=== PATIENT | male | born 1990 | race Caucasian/White ===

== ENCOUNTER 2017-07-30 02:04 | Emergency (ER) | payer OTHER ==
--- NOTE | 2017-07-30 03:05 | CPEKG ---
Heart Rate: 89 RR Interval: 674 P-R Interval: 132 QRSD Interval: 98 QT Interval: 368 QTC Interval: 448 P [place]: 66 QRS [place]: 91 T Wave [place]: 14 EKG Severity - OTHERWISE NORMAL ECG - EKG Impression: SINUS RHYTHM EKG Impression: BORDERLINE RIGHT AXIS DEVIATION Electronically Signed By: Lynsey Birch 30-Jul-2017 06:04:14
--- NOTE | 2017-07-30 03:16 | EDPHY ---
H & P Stated Complaint: BURNING IN CHEST AND FLUSH FEELING AFTER MED CHANGE Time Seen by Provider: 07/30/17 02:40 HPI/ROS: HPI The patient presents with concern for anxiety attack. He has had several hours of progressive panic, diffuse flushing, nausea. He has taken a total of 3 doses of lorazepam since his symptoms begun and now he is feeling much better. He has a history of bipolar disorder a had and has had changes to his medications lately, most recently started on Abilify 2 weeks ago. He denies any SI. REVIEW OF SYSTEMS Constitutional: No fever, no chills. Eyes: No discharge. ENT: No sore throat. Cardiovascular: No chest pain, no palpitations. Respiratory: No cough, no shortness of breath. Gastrointestinal: No abdominal pain, no vomiting. Genitourinary: No hematuria. Musculoskeletal: No back pain. Skin: No rashes. Neurological: No headache. PMHx: Bipolar disorder Soc Hx: Housed PHYSICAL General Appearance: Alert, no distress Eyes: Pupils equal and round no pallor or injection ENT, Mouth: Mucous membranes moist Respiratory: There are no retractions, lungs are clear to auscultation Cardiovascular: Regular rate and rhythm Gastrointestinal: Abdomen is soft and non-tender, no masses, bowel sounds normal Neurological: A&O, moves all extremities Skin: Warm and dry, no rashes Musculoskeletal: Neck is supple non tender Extremities: symmetrical, full range of motion Psychiatric: Patient is oriented X 3, there is no agitation Source: Patient Exam Limitations: No limitations - Personal History Current Tetanus/Diphtheria Vaccine: Yes Current Tetanus Diphtheria and Acellular Pertussis (TDAP): Yes - Medical/Surgical History Hx Asthma: Yes Hx Chronic Respiratory Disease: No Hx Diabetes: No Hx Cardiac Disease: No Hx Renal Disease: No Hx Cirrhosis: No Hx Alcoholism: No Hx HIV/AIDS: No Hx Splenectomy or Spleen Trauma: No Other PMH: asthma, bipolar?,depression, OCD - Social History Smoking Status: Former smoker Constitutional: Initial Vital Signs Temperature (C) 36.6 C 07/30/17 02:07 Heart Rate 109 H 07/30/17 02:07 Respiratory Rate 20 07/30/17 02:07 Blood Pressure 155/76 H 07/30/17 02:07 O2 Sat (%) 95 07/30/17 02:07 O2 Delivery Mode Room Air Allergies/Adverse Reactions: cefixime [From Suprax] Allergy (Verified 07/30/17 02:09) cefuroxime axetil [From Ceftin] Allergy (Verified 07/30/17 02:09) clarithromycin [From Biaxin] Allergy (Verified 07/30/17 02:09) erythromycin base [Erythromycin Base] Allergy (Verified 07/30/17 02:09) montelukast sodium [From Singulair] Allergy (Verified 07/30/17 02:09) Penicillins Allergy (Verified 07/30/17 02:09) Home Medications: Medication Instructions Recorded Advair 250/50 (RX) 12/28/13 Proventil Inhaler HFA (RX) 12/28/13 Ibuprofen [Motrin] 800 mg PO Q8 #20 tab 09/07/14 LORazepam [Ativan] 1 mg PO 09/07/14 lamoTRIgine [LamICTAL] 100 mg PO 09/07/14 ARIPiprazole [Abilify] 20 mg PO 07/30/17 Quetiapine Fumarate 50 mg PO 07/30/17 Sertraline HCl [Zoloft 25mg (*)] 10 mg PO DAILY 07/30/17 Medical Decision Making Differential Diagnosis: This is a 27-year-old male with history of bipolar disorder who presents from home with likely panic attack. He is now feeling much better after taking lorazepam. He had symptoms of flushing, feeling hot, nausea, panic. He is new to taking Abilify over the last few weeks. On exam, he is well-appearing with normal vital signs. EKG is checked to evaluate for QT prolongation. This is unremarkable. He feels well enough to go home and would like to be discharged. Differential diagnoses considered include anxiety attack, QT prolongation, SVT. Departure - Departure Disposition: Home, Routine, Self-Care Clinical Impression: Anxiety attack Condition: Good Instructions: Anxiety (ED) Additional Instructions: Please follow-up with your primary psychiatrist in the next few days. You should return to the emergency department if your worse in any way.
[2017-07-30 03:22] VITALS: BP 109/73
== END 2017-07-30 03:38 | disposition home or self-care (01) ==
DX: F41.9 Anxiety disorder, unspecified (principal); J45.909 Unspecified asthma, uncomplicated; Z87.891 Personal history of nicotine dependence

== ENCOUNTER → 2017-08-02 | Outpatient (CLI) | payer OTHER | LOC: BMCIMAGING 13:02 | PROVIDERS: ATTEND Family Medicine | DX: K59.00 Constipation, unspecified (principal); R16.1 Splenomegaly, not elsewhere classified ==

== ENCOUNTER 2017-08-06 01:56 | Emergency (ER) | payer OTHER ==
--- NOTE | 2017-08-06 02:31 | EDPHY ---
H & P Stated Complaint: c/o pain under R ribs, recent hx of constipation - says last bm 8+ days ago Time Seen by Provider: 08/06/17 02:31 HPI/ROS: HPI CHIEF COMPLAINT: Right flank pain sharp stabbing sudden onset. HISTORY OF PRESENT ILLNESS: This patient 27-year-old male, history of bipolar disorder, otherwise healthy, presents emergency room with right-sided close back pain CVA pain. Describes sharp stabbing pain. Radiates down to his abdomen right lower abdomen. He had nausea vomiting approximately a week ago this is since subsided. However he continues to have some back pain. However tonight it got worse. Describes sharp stabbing 10/10 rather constant woke from sleep. On the right side. He distally reports to me that we had some low back pain and abdominal discomfort earlier in the week he went to urgent care and thought he was constipated he was given an enema however states he still has not had a good bowel movement in 8 days. Denies fever. Denies chest pain or shortness of breath. Pain is located in the right flank radiates to the right abdomen. No fever. 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 Smokes tobacco. Family History: Noncontributory ROS REVIEW OF SYSTEMS: A comprehensive 10 point review of systems is otherwise negative aside from elements mentioned in the history of present illness. Exam Constitutional appears well nontoxic no acute distress triage nursing summary reviewed, vital signs reviewed, awake/alert. Eyes normal conjunctivae and sclera, EOMI, PERRLA. HENT normal inspection, atraumatic, moist mucus membranes, no epistaxis, neck supple/ no meningismus, no raccoon eyes. Respiratory clear to auscultation bilaterally, normal breath sounds, no respiratory distress, no wheezing. Cardiovascular rate normal, regular rhythm, no murmur, no edema, distal pulses normal. Gastrointestinal soft, non-tender, no rebound, no guarding, normal bowel sounds, no distension, no pulsatile mass. Genitourinary mild tender palpation right CVA, right-sided the abdomen, no guarding or peritoneal signs. Musculoskeletal no midline vertebral tenderness, full range of motion, no calf swelling, no tenderness of extremities, no meningismus, good pulses, neurovascularly intact. Skin pink, warm, & dry, no rash, skin atraumatic. Neurologic awake, alert and oriented x 3, AAOx3, moves all 4 extremities equally, motor intact, sensory intact, CN II-XII intact, normal cerebellar, normal vision, normal speech. Psychiatric normal mood/affect. Heme/Lymph/Immune no lymphadenopathy. Differential diagnosis includes but is not limited to and in no particular order : Bowel obstruction, appendicitis, gallbladder disease, diverticulitis, colitis , enteritis, perforated viscus, gastritis, GERD, esophagitis, urinary tract infection, pyelonephritis, kidney stones Medical Decision Making: Plan for this patient IV establishment with blood draw , CT scan abdomen pelvis without contrast for right flank pain, check blood work , urinalysis, IV pain medicine IV fluids and re-evaluate. Check UA. Re-evaluation: CT scan abdomen pelvis without contrast for flank pain: Negative for acute inflammatory process specifically no evidence of kidney stone, pyelonephritis, hydroureter or hydronephrosis. Right-sided constipation seen on the CT scan. Slight disc herniation L5-S1. No evidence of acute appendicitis. 0600: Blood work reviewed. Unremarkable. No evidence of high white count urinalysis is clean. Electrolytes are appropriate. CT scan shows constipation. This may be the cause of his right-sided pain. There is no evidence of kidney stone pyelonephritis or other acute inflammatory process seen on his CT scan. Patient is feeling much better after 1 mg IV Dilaudid IV fluids. He would like to go home. I discussed return precautions with him. He understands return emergency room if develops worsening abdominal pain fever vomiting. I will prescribe him stool softeners, as well as ibuprofen 800 mg. Return precautions discussed the understands. Source: Patient - Medical/Surgical History Hx Asthma: Yes Hx Chronic Respiratory Disease: No Hx Diabetes: No Hx Cardiac Disease: No Hx Renal Disease: No Hx Cirrhosis: No Hx Alcoholism: No Hx HIV/AIDS: No Hx Splenectomy or Spleen Trauma: No Other PMH: asthma, bipolar?,depression, OCD - Social History Smoking Status: Former smoker Constitutional: Initial Vital Signs Temperature (C) 36.9 C 08/06/17 02:09 Heart Rate 90 08/06/17 02:09 Respiratory Rate 18 08/06/17 02:09 Blood Pressure 109/66 08/06/17 02:09 O2 Sat (%) 97 08/06/17 02:09 O2 Delivery Mode Room Air Allergies/Adverse Reactions: cefixime [From Suprax] Allergy (Verified 08/06/17 02:14) cefuroxime axetil [From Ceftin] Allergy (Verified 08/06/17 02:14) clarithromycin [From Biaxin] Allergy (Verified 08/06/17 02:14) erythromycin base [Erythromycin Base] Allergy (Verified 08/06/17 02:14) montelukast sodium [From Singulair] Allergy (Verified 08/06/17 02:14) peanut Allergy (Verified 08/06/17 02:14) Penicillins Allergy (Verified 08/06/17 02:14) tree nut Allergy (Verified 08/06/17 02:14) Home Medications: Medication Instructions Recorded Advair 250/50 (RX) 12/28/13 Proventil Inhaler HFA (RX) 12/28/13 Ibuprofen [Motrin] 800 mg PO Q8 #20 tab 09/07/14 LORazepam [Ativan] 1 mg PO 09/07/14 lamoTRIgine [LamICTAL] 100 mg PO 09/07/14 ARIPiprazole [Abilify] 20 mg PO 07/30/17 Quetiapine Fumarate 50 mg PO 07/30/17 Sertraline HCl [Zoloft 25mg (*)] 10 mg PO DAILY 07/30/17 Ibuprofen [Motrin (*)] 800 mg PO Q6-8PRN #14 tab 08/06/17 OLANZapine 08/06/17 Polyethylene Glycol 3350 [Miralax 17 gm PO DAILY #4 pkt 08/06/17 17 gm (*)] Medical Decision Making - Data Points Laboratory Results: Laboratory Results 08/06/17 03:00 08/06/17 03:00 08/06/17 08/06/17 08/06/17 04:40 03:00 03:00 WBC 7.77 10^3/uL 10^3/uL (3.80-9.50) RBC 4.46 10^6/uL 10^6/uL (4.40-6.38) Hgb 13.9 g/dL g/dL (13.7-17.5) Hct 39.4 % L % (40.0-51.0) MCV 88.3 fL fL (81.5-99.8) MCH 31.2 pg pg (27.9-34.1) MCHC 35.3 g/dL g/dL (32.4-36.7) RDW 12.2 % % (11.5-15.2) Plt Count 232 10^3/uL 10^3/uL (150-400) MPV 9.8 fL fL (8.7-11.7) Neut % (Auto) 50.9 % % (39.3-74.2) Lymph % (Auto) 33.3 % % (15.0-45.0) [place] % (Auto) 7.2 % % (4.5-13.0) Eos % (Auto) 7.5 % % (0.6-7.6) Baso % (Auto) 0.8 % % (0.3-1.7) Nucleat RBC Rel Count 0.0 % % (0.0-0.2) Absolute Neuts (auto) 3.96 10^3/uL 10^3/uL (1.70-6.50) Absolute Lymphs (auto) 2.59 10^3/uL 10^3/uL (1.00-3.00) Absolute Monos (auto) 0.56 10^3/uL 10^3/uL (0.30-0.80) Absolute Eos (auto) 0.58 10^3/uL H 10^3/uL (0.03-0.40) Absolute Basos (auto) 0.06 10^3/uL 10^3/uL (0.02-0.10) Absolute Nucleated RBC 0.00 10^3/uL 10^3/uL (0-0.01) Immature Gran % 0.3 % % (0.0-1.1) Immature Gran # 0.02 10^3/uL 10^3/uL (0.00-0.10) Sodium 145 mEq/L mEq/L (135-145) Potassium 4.1 mEq/L mEq/L (3.5-5.2) Chloride 104 mEq/L mEq/L (97-110) Carbon Dioxide 28 mEq/l mEq/l (22-31) Anion Gap 13 mEq/L mEq/L (8-16) BUN 15 mg/dL mg/dL (7-23) Creatinine 1.0 mg/dL mg/dL (0.7-1.3) Estimated GFR > 60 Glucose 96 mg/dL mg/dL (70-100) Calcium 9.9 mg/dL mg/dL (8.5-10.4) Total Bilirubin 0.3 mg/dL mg/dL (0.1-1.4) Conjugated Bilirubin 0.2 mg/dL mg/dL (0.0-0.5) Unconjugated Bilirubin 0.1 mg/dL mg/dL (0.0-1.1) AST 15 IU/L L IU/L (17-59) ALT 22 IU/L IU/L (21-72) Alkaline Phosphatase 73 IU/L IU/L (38-126) Total Protein 7.4 g/dL g/dL (6.3-8.2) Albumin 4.7 g/dL g/dL (3.5-5.0) Lipase 115 IU/L IU/L (23-300) Urine Color YELLOW Urine Appearance MODERATELY TURBID Urine pH 8.0 H (5.0-7.5) Ur Specific [place] 1.014 (1.002-1.030) Urine Protein NEGATIVE (NEGATIVE) Urine Ketones NEGATIVE (NEGATIVE) Urine Blood NEGATIVE (NEGATIVE) Urine Nitrate NEGATIVE (NEGATIVE) Urine Bilirubin NEGATIVE (NEGATIVE) Urine Urobilinogen NEGATIVE EU EU (0.2-1.0) Ur Leukocyte Esterase NEGATIVE (NEGATIVE) Urine Glucose NEGATIVE (NEGATIVE) Medications Given: Discontinued Medications Hydromorphone HCl (Dilaudid) 1 mg IVP EDNOW ONE Stop: 08/06/17 02:43 Last Admin: 08/06/17 03:05 Dose: 1 mg Sodium Chloride (Ns) 1,000 mls @ 0 mls/hr IV EDNOW ONE; Wide Open PRN Reason: Protocol Stop: 08/06/17 02:43 Last Admin: 08/06/17 03:06 Dose: 1,000 mls Ondansetron HCl (Zofran) 4 mg IVP EDNOW ONE Stop: 08/06/17 02:43 Last Admin: 08/06/17 03:05 Dose: 4 mg Departure - Departure Disposition: Home, Routine, Self-Care Clinical Impression: Constipation Qualifiers: Constipation type: slow transit constipation Qualified Code(s): K59.01 - Slow transit constipation Condition: Good Instructions: Constipation (ED), Flank Pain (ED) Additional Instructions: 1. Return emergency room if you have worsening abdominal pain fever vomiting good. Referrals: NONE *PRIMARY CARE P,. [Primary Care Provider] - As per Instructions Prescriptions: Ibuprofen [Motrin (*)] 800 mg PO Q6-8PRN #14 tab Polyethylene Glycol 3350 [Miralax 17 gm (*)] 17 gm PO DAILY #4 pkt
[2017-08-06] MEDS ORDERED: NS 1,000 ML IV ONE (02:42)
[2017-08-06] MEDS ORDERED: HYDROmorphONE/DILAUDID 2 MG/ML INJ IVP ONE (02:42)
[2017-08-06] MEDS ORDERED: ONDANSETRON 4 MG/2 ML VIAL IVP ONE (02:42)
[2017-08-06 03:32] LABS: PLATELET COUNT 232 10^3/uL (150-400)
[2017-08-06 06:19] VITALS: BP 100/57
== END 2017-08-06 06:20 | disposition home or self-care (01) ==
DX: K59.01 Slow transit constipation (principal); E86.9 Volume depletion, unspecified; J45.909 Unspecified asthma, uncomplicated; Z87.891 Personal history of nicotine dependence; Z91.010 Allergy to peanuts
CPT/HCPCS: 96374; J1170; J2405

== ENCOUNTER → 2017-11-07 | Outpatient (CLI) | payer OTHER | LOC: BMCIMAGING 16:41 | PROVIDERS: ATTEND Internal Medicine | DX: M54.2 Cervicalgia (principal) ==

== ENCOUNTER 2018-05-09 14:16 | Emergency (ER) | payer OTHER ==
[2018-05-09 14:23] VITALS: BP 122/94
--- NOTE | 2018-05-09 14:34 | EDPHY ---
H & P Stated Complaint: snapping fingers felt sharp nerve type pain r arm Time Seen by Provider: 05/09/18 14:19 HPI/ROS: HPI: This is a 28-year-old male who presents with Chief Complaint: snapping fingers felt sharp nerve type pain r arm Location: Right wrist Quality: Injury Duration: 30 min prior to arrival Signs and Symptoms: No bleeding, + radiation, no numbness, no weakness, no tingling, no incontinence, no decreased range of motion, no swelling, + pain, no fever Timing: Acute Severity: Moderate Context: Patient reports that he is right-hand dominant, presents with sudden onset of right volar aspect wrist pain that shoots up into his elbow after stepping his fingers and twisting his wrist. Patient reports that the pain was sudden and sharp and shooting in nature. He denies any decreased range of motion. 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 Modifying Factors: None Comment: ROS: A comprehensive 10 system review of systems is otherwise negative aside from elements mentioned in the history of present illness. MEDICAL/SURGICAL/SOCIAL HISTORY: Medical history: asthma, bipolar?, depression, OCD Surgical history: Denies Social history: Former smoker. 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 CONSTITUTIONAL: Well-developed, well-nourished adult white male, awake and alert, mild distress HEENT: Atraumatic and normocephalic. NECK: supple, no midline tenderness Cardiovascular: Normal S1/S2, regular rate, regular rhythm, without murmur rub or gallop. PULMONARY/CHEST: Symmetrical and nontender. no crepitus. Clear to auscultation bilaterally. Good air movement. No accessory muscle usage. ABDOMEN: Soft, nondistended, nontender, no ecchymosis. EXTREMITIES: 2/2 pulses, strength 5/5, right WRIST: Extension limited to 40 degree, flexion limited to 40, radial deviation to 20 degree, ulnar deviation to 30, no scaphoid tenderness, no tenderness over ulnar styloid, no tenderness over radial styloid, no pain with Marko test, mild pain with Phalen test, moderate pain with Tinel test DIP/PIP/MCP flexion/extension intact with good light touch sensation. Right ELBOW: Full extension to 180, flexion to 150, no tenderness over medial epicondyle, no tenderness over lateral epicondyle, no effusion. no deformities, no clubbing, no cyanosis or edema. NEUROLOGICAL: no focal neuro deficits. GCS 15. Light touch sensation intact. SKIN: Warm and dry, no erythema. no rash. Good capillary refill. Source: Patient Exam Limitations: No limitations - Personal History Current Tetanus Diphtheria and Acellular Pertussis (TDAP): Unsure - Medical/Surgical History Hx Asthma: Yes Hx Chronic Respiratory Disease: No Hx Diabetes: No Hx Cardiac Disease: No Hx Renal Disease: No Hx Cirrhosis: No Hx Alcoholism: No Hx HIV/AIDS: No Hx Splenectomy or Spleen Trauma: No Other PMH: asthma, bipolar?,depression, OCD - Social History Smoking Status: Former smoker Constitutional: Initial Vital Signs Temperature (C) 36.5 C 05/09/18 14:21 Heart Rate 100 05/09/18 14:21 Respiratory Rate 18 05/09/18 14:21 Blood Pressure 122/94 H 05/09/18 14:21 O2 Sat (%) 96 05/09/18 14:21 O2 Delivery Mode Room Air Allergies/Adverse Reactions: cefixime [From Suprax] Allergy (Verified 05/09/18 14:18) cefuroxime axetil [From Ceftin] Allergy (Verified 05/09/18 14:18) clarithromycin [From Biaxin] Allergy (Verified 05/09/18 14:18) erythromycin base [Erythromycin Base] Allergy (Verified 05/09/18 14:18) montelukast sodium [From Singulair] Allergy (Verified 05/09/18 14:18) peanut Allergy (Verified 05/09/18 14:18) Penicillins Allergy (Verified 05/09/18 14:18) tree nut Allergy (Verified 05/09/18 14:18) Home Medications: Medication Instructions Recorded Advair 250/50 (RX) 12/28/13 Proventil Inhaler HFA (RX) 12/28/13 Ibuprofen [Motrin] 800 mg PO Q8 #20 tab 09/07/14 LORazepam [Ativan] 1 mg PO 09/07/14 lamoTRIgine [LamICTAL] 100 mg PO 09/07/14 ARIPiprazole [Abilify] 20 mg PO 07/30/17 Quetiapine Fumarate 50 mg PO 07/30/17 Ibuprofen [Motrin (*)] 800 mg PO Q6-8PRN #14 tab 08/06/17 OLANZapine 08/06/17 Polyethylene Glycol 3350 [Miralax 17 gm PO DAILY #4 pkt 08/06/17 17 gm (*)] Propranolol HCl 05/09/18 Trileptal 05/09/18 Medical Decision Making Procedures: Procedure: Splint placement. A right Velcro volar wrist splint was applied by the Emergency Room health technician. After application of the splint I returned and re-examined the patient. The splint was adequately immobilizing the joint and distal to the splint the patient's circulation and sensation was intact. ED Course/Re-evaluation: No indication for x-ray imaging as I do not believe that this is bone related. It appears that patient has a sprain or nerve impingement injury. Patient placed in a Velcro volar wrist splint, Percocet x1, orthopedic hand follow-up as needed No signs of neurovascular compromise/tenting of skin/compartment syndrome/ extremities and joints examined above and below area of concern and are neurovascularly intact. This patient was seen under the supervision of my secondary supervising physician. I evaluated care for this patient independently. Discussed this patient with Dr. Croft who did not see the patient. Differential Diagnosis: Differential diagnosis includes but is not limited to ligamentous injury, nerve injury, tendon injury, sprain. Departure - Departure Disposition: Home, Routine, Self-Care Clinical Impression: Injury of median nerve at wrist and hand level of right arm, initial encounter Right wrist injury Qualifiers: Encounter type: initial encounter Qualified Code(s): S69.91XA - Unspecified injury of right wrist, hand and finger(s), initial encounter Condition: Good Instructions: Paresthesia (ED), Carpal Tunnel Surgery (DC) Additional Instructions: Wear the Velcro wrist splint while out of bed until pain free or seen by orthopedic/hand. Take Tylenol 650 mg every 4 hours and/or Ibuprofen 600 mg every 8 hours with food as needed for pain. Apply ice for 30 minutes at a time; 2-3 times per day for the next 1-2 days. Follow up with Orthopedics/Hand in 5-7 days if symptoms persist at which time they will evaluate and recommend with you if conservative management versus MRI is indicated. Referrals: Nate Irby MD [Medical Doctor] - As per Instructions
[2018-05-09] MEDS ORDERED: OXYCODONE/APAP 5/325 TAB PO ONE (14:42)
== END 2018-05-09 14:57 | disposition home or self-care (01) ==
DX: S64.11XA Injury of median nerve at wrist and hand level of right arm, initial encounter (principal); J45.909 Unspecified asthma, uncomplicated; F32.9 Major depressive disorder, single episode, unspecified; F42.9 Obsessive-compulsive disorder, unspecified; Z79.899 Other long term (current) drug therapy; Z87.891 Personal history of nicotine dependence; X58.XXXA Exposure to other specified factors, initial encounter
CPT/HCPCS: L3984

== ENCOUNTER 2018-07-04 18:26 | Emergency (ER) | payer OTHER ==
[2018-07-04] MEDS ORDERED: NS 1,000 ML IV ONE (18:40)
[2018-07-04] MEDS ORDERED: HYDROmorphONE/DILAUDID 2 MG/ML INJ IVP ONE (18:40)
[2018-07-04] MEDS ORDERED: ONDANSETRON 4 MG/2 ML VIAL IVP ONE (18:40)
--- NOTE | 2018-07-04 18:44 | EDPHY ---
H & P Stated Complaint: L teste/penis/low back pn with burning urination x5D Time Seen by Provider: 07/04/18 18:34 - Personal History Current Tetanus/Diphtheria Vaccine: Yes - Medical/Surgical History Hx Asthma: Yes Hx Chronic Respiratory Disease: No Hx Diabetes: No Hx Cardiac Disease: No Hx Renal Disease: No Hx Cirrhosis: No Hx Alcoholism: No Hx HIV/AIDS: No Hx Splenectomy or Spleen Trauma: No Other PMH: asthma, bipolar?,depression, OCD - Social History Smoking Status: Former smoker Constitutional: Initial Vital Signs Temperature (C) 36.7 C 07/04/18 18:31 Heart Rate 89 07/04/18 18:31 Respiratory Rate 16 07/04/18 18:31 Blood Pressure 124/81 H 07/04/18 18:31 O2 Sat (%) 98 07/04/18 18:31 O2 Delivery Mode Room Air Allergies/Adverse Reactions: cefixime [From Suprax] Allergy (Verified 07/04/18 18:30) cefuroxime axetil [From Ceftin] Allergy (Verified 07/04/18 18:30) clarithromycin [From Biaxin] Allergy (Verified 07/04/18 18:30) erythromycin base [Erythromycin Base] Allergy (Verified 07/04/18 18:30) montelukast sodium [From Singulair] Allergy (Verified 07/04/18 18:30) peanut Allergy (Verified 07/04/18 18:30) Penicillins Allergy (Verified 07/04/18 18:30) tree nut Allergy (Verified 07/04/18 18:30) Home Medications: Medication Instructions Recorded Advair 250/50 (RX) 12/28/13 Proventil Inhaler HFA (RX) 12/28/13 Ibuprofen [Motrin] 800 mg PO Q8 #20 tab 09/07/14 LORazepam [Ativan] 1 mg PO 09/07/14 lamoTRIgine [LamICTAL] 100 mg PO 09/07/14 ARIPiprazole [Abilify] 20 mg PO 07/30/17 Quetiapine Fumarate 50 mg PO 07/30/17 Ibuprofen [Motrin (*)] 800 mg PO Q6-8PRN #14 tab 08/06/17 OLANZapine 08/06/17 Polyethylene Glycol 3350 [Miralax 17 gm PO DAILY #4 pkt 08/06/17 17 gm (*)] Propranolol HCl 05/09/18 Trileptal 05/09/18 Ibuprofen [Motrin] 800 mg PO Q8 #20 tab 07/04/18 Medical Decision Making - Diagnostics Imaging Results: Imaging Impressions Abdomen CT 07/04/18 18:40 Impression: 1. Normal appendix with reactive right lower quadrant mesenteric lymph nodes which can be seen in mesenteric adenitis. 2. Mild diverticulosis with thick-walled descending/sigmoid colon which is likely secondary to decompression which limits evaluation for colitis. Luke Ureña was notified of these findings at 7:51 PM on 07/04/2018 Testicular Ultrasound 07/04/18 19:49 Impression: 1. No evidence of testicular torsion. 2. Suggestion of small right varicocele. Luke Ureña was notified of these findings by telephone at 9:05 PM on 07/04/2018 Imaging: Discussed imaging studies w/ varnisher Radiologist, I viewed and interpreted images myself ED Course/Re-evaluation: CHIEF COMPLAINT: Right lower quadrant and right groin pain HISTORY OF PRESENT ILLNESS: Healthy 20-year-old male whose had 7-10 days of worsening right lower quadrant right testicular right groin pain. He also has some radiation to his right lower back. He complains of significant pain when he touches his right testicle or penis. He denies any sexual activity and has not been active for at least 9-10 months. He denies any fevers or chills. Denies any nausea vomiting but when he has severe pain he gets somewhat nauseated. Normal bowel movements. No history of abdominal surgeries. REVIEW OF SYSTEMS: A comprehensive 10 system review of systems is otherwise negative aside from elements mentioned in the history of present illness and medical decision making. PHYSICAL EXAM: HR, BP, O2 Sat, RR. Temp noted General Appearance: Alert, well hydrated, appropriate, and non-toxic appearing. Head: Atraumatic without scalp tenderness or obvious injury Eyes: Pupils equal, round, reactive to light and accommodation, EOMI, no trauma , no injection. Ears: Clear bilaterally, no perforation, normal landmarks Nose: Atraumatic, no rhinorrhea, clear. Throat: There is no erythema or exudates, no lesions, normal tonsils, mucus membranes moist. Neck: Supple, 2+ carotid upstroke, nontender, no lymphadenopathy. Respiratory: No retractions, no distress, no wheezes, and no accessory muscle use. Lungs are clear to auscultation bilaterally. Cardiovascular: Regular rate and rhythm, no murmurs, rubs, or gallops. Bilateral carotid, radial, dorsalis pedis, and posterior tibial pulses intact. Good capillary refill all extremities. Gastrointestinal: Significant tenderness in the right lower quadrant over McBurney's point. He also has some palpable pain in the right flank and along the right testicle even though the testicle itself feels normal. No evidence of hernia. Musculoskeletal: Normal active ROM of all extremities, atraumatic. Neurological: Alert, appropriate, and interactive. The patient has normal DTRs and non-focal cranial nerves, motor, sensory, and cerebellar exam. Skin: No rashes, good turgor, no nodules on palpation. Past medical history: Patient denies Past surgical history: Patient denies Family history: Noncontributory Social history: Single, employed, smokes cigarettes only occasionally, does not abuse drugs or alcohol DIAGNOSTICS/PROCEDURES/CRITICAL CARE TIME: Abdominopelvic CT: Enlarged lymph nodes consistent with mesenteric adenitis. Testicular US: No acute findings. DIFFERENTIAL DIAGNOSIS: The differential diagnosis for the patient's abdominal pain included but was not limited to appendicitis, cholecystitis, hernias, testicular torsion, gastritis, and urinary tract infection. MEDICAL DECISION MAKING: This patient has is very tender right lower quadrant. He has had pain for 7-10 days. I am certainly concerned about appendicitis or at this point potentially appendiceal abscess or rupture. This could also be a large kidney stone which is taking time the past since he does have significant radiation down to his right testicle and penis although there and appears to be nothing wrong with his testicles or penis on examination. I will start with a CT scan of his abdomen and blood work. If needed I will perform a testicular ultrasound. 1950: I spoke with the radiologist who reports that the patient has enlarged lymph nodes consistent with mesenteric adenitis. Testicular US. 1954: Reassessed patient and discussed laboratory and imaging findings. I also discussed plan for testicular US, which he is comfortable with. 2104: I spoke with the radiologist who reports that there are no acute findings on the testicular US. Patient's symptoms are consistent with mesenteric adenitis. 2106: Reassessed patient and discussed testicular US findings. I have prescribed him Motrin. Return precautions provided; patient is comfortable with this plan. - Data Points Laboratory Results: Laboratory Results 03/22/19 18:54 07/04/18 18:54 07/04/18 07/04/18 07/04/18 19:10 18:54 18:54 WBC 7.23 10^3/uL 10^3/uL (3.80-9.50) RBC 4.62 10^6/uL 10^6/uL (4.40-6.38) Hgb 14.5 g/dL g/dL (13.7-17.5) POC Hgb 15.0 gm/dL gm/dL (13.7-17.5) Hct 41.6 % % (40.0-51.0) POC Hct 44 % % (40-51) MCV 90.0 fL fL (81.5-99.8) MCH 31.4 pg pg (27.9-34.1) MCHC 34.9 g/dL g/dL (32.4-36.7) RDW 12.4 % % (11.5-15.2) Plt Count 238 10^3/uL 10^3/uL (150-400) MPV 9.7 fL fL (8.7-11.7) Neut % (Auto) 59.5 % % (39.3-74.2) Lymph % (Auto) 24.5 % % (15.0-45.0) [place] % (Auto) 7.2 % % (4.5-13.0) Eos % (Auto) 7.9 % H % (0.6-7.6) Baso % (Auto) 0.8 % % (0.3-1.7) Nucleat RBC Rel Count 0.0 % % (0.0-0.2) Absolute Neuts (auto) 4.30 10^3/uL 10^3/uL (1.70-6.50) Absolute Lymphs (auto) 1.77 10^3/uL 10^3/uL (1.00-3.00) Absolute Monos (auto) 0.52 10^3/uL 10^3/uL (0.30-0.80) Absolute Eos (auto) 0.57 10^3/uL H 10^3/uL (0.03-0.40) Absolute Basos (auto) 0.06 10^3/uL 10^3/uL (0.02-0.10) Absolute Nucleated RBC 0.00 10^3/uL 10^3/uL (0-0.01) Immature Gran % 0.1 % % (0.0-1.1) Immature Gran # 0.01 10^3/uL 10^3/uL (0.00-0.10) POC Sodium 140 mEq/L mEq/L (135-145) Sodium 135 mEq/L mEq/L (135-145) POC Potassium 3.5 mEq/L mEq/L (3.3-5.0) Potassium 3.8 mEq/L mEq/L (3.5-5.2) POC Chloride 101 mEq/L mEq/L (97-110) Chloride 100 mEq/L mEq/L (97-110) Carbon Dioxide 25 mEq/l mEq/l (22-31) POC Total CO2 26 mEq/L mEq/L (22-31) Anion Gap 10 mEq/L mEq/L (6-14) POC BUN 12 mg/dL mg/dL (7-23) BUN 13 mg/dL mg/dL (7-23) Creatinine 0.9 mg/dL mg/dL (0.7-1.3) POC Creatinine 0.9 mg/dL mg/dL (0.7-1.3) Estimated GFR > 60 Glucose 108 mg/dL H mg/dL (70-100) POC Glucose 110 mg/dL H mg/dL (70-100) Calcium 9.6 mg/dL mg/dL (8.5-10.4) Total Bilirubin 0.4 mg/dL mg/dL (0.1-1.4) Conjugated Bilirubin 0.2 mg/dL mg/dL (0.0-0.5) Unconjugated Bilirubin 0.2 mg/dL mg/dL (0.0-1.1) AST 20 IU/L IU/L (17-59) ALT 20 IU/L L IU/L (21-72) Alkaline Phosphatase 89 IU/L IU/L (38-126) Total Protein 7.8 g/dL g/dL (6.3-8.2) Albumin 4.8 g/dL g/dL (3.5-5.0) Lipase 88 IU/L IU/L (23-300) Medications Given: Discontinued Medications Hydromorphone HCl (Dilaudid) 0.5 mg IVP EDNOW ONE Stop: 07/04/18 18:41 Last Admin: 07/04/18 18:52 Dose: 0.5 mg Sodium Chloride (Ns) 1,000 mls @ 0 mls/hr IV EDNOW ONE; Wide Open PRN Reason: Protocol Stop: 07/04/18 18:41 Last Admin: 07/04/18 18:51 Dose: 1,000 mls Ketorolac Tromethamine (Toradol) 30 mg IVP EDNOW ONE Stop: 07/04/18 20:16 Last Admin: 07/04/18 20:50 Dose: 30 mg Ondansetron HCl (Zofran) 4 mg IVP EDNOW ONE Stop: 07/04/18 18:41 Last Admin: 07/04/18 18:52 Dose: 4 mg Point of Care Test Results: Chemistry 07/04/18 19:10 POC Sodium 140 mEq/L mEq/L (135-145) POC Potassium 3.5 mEq/L mEq/L (3.3-5.0) POC Chloride 101 mEq/L mEq/L (97-110) POC Total CO2 26 mEq/L mEq/L (22-31) POC BUN 12 mg/dL mg/dL (7-23) POC Creatinine 0.9 mg/dL mg/dL (0.7-1.3) POC Glucose 110 mg/dL H mg/dL (70-100) ISTAT H&H 07/04/18 19:10 POC Hgb 15.0 gm/dL gm/dL (13.7-17.5) POC Hct 44 % % (40-51) Departure - Departure Disposition: Home, Routine, Self-Care Clinical Impression: Mesenteric adenitis Condition: Good Instructions: Mesenteric Adenitis (ED) Additional Instructions: 1. Take Motrin as prescribed. 2. Follow-up with your primary doctor within 72 hours. 3. Return to the Emergency Department for fever, worsening pain, flank pain or failure to improve within 72 hours. Referrals: [facility],. [Clinic] - As per Instructions Prescriptions: Ibuprofen [Motrin] 800 mg PO Q8 #20 tab Report Scribed for: Luke Ureña Report Scribed by: Faby Razo Date of Report: 07/04/18 Time of Report: 21:10
[2018-07-04] MEDS ORDERED: IOPAMIDOL (ISOVUE-300) 100 ML BTL ONE (19:05)
[2018-07-04 19:06] LABS: PLATELET COUNT 238 10^3/uL (150-400)
[2018-07-04] MEDS ORDERED: KETOROLAC 30 MG/1 ML SDV IVP ONE (20:15)
[2018-07-04 21:15] VITALS: BP 117/70
== END 2018-07-04 21:14 | disposition home or self-care (01) ==
DX: I88.0 Nonspecific mesenteric lymphadenitis (principal); N50.811 Right testicular pain; K57.30 Diverticulosis of large intestine without perforation or abscess without bleeding; E86.9 Volume depletion, unspecified; Z87.891 Personal history of nicotine dependence
CPT/HCPCS: 82435-PO; 82565-PO; 82947-PO; 84132-PO; 84295-PO; 84520-PO; 85014-ER; 96374; J1170; J1885; J2405; Q9967

== ENCOUNTER 2018-07-18 01:41 | Observation (INO) | payer OTHER ==
[2018-07-18] MEDS ORDERED: NS 1,000 ML IV ONE ×2 (01:51)
[2018-07-18] MEDS ORDERED: ONDANSETRON 4 MG/2 ML VIAL IVP ONE (01:51)
--- NOTE | 2018-07-18 01:51 | EDPHY ---
H & P Stated Complaint: abd pain, nausea, vomiting, back pain Time Seen by Provider: 07/18/18 01:51 HPI/ROS: HPI CHIEF COMPLAINT: Abdominal pain. HISTORY OF PRESENT ILLNESS: 28-year-old male, presents emergency room with worsening abdominal pain this evening. Associated nausea. Has had multiple episodes of nonbilious nonbloody vomit. States he has lower crampy abdominal pain worse on the right at this time. He reports over the last 2 weeks he has had large amounts watery yellow pale diarrhea no blood. Also has intermittent abdominal pain increasing abdominal pain. No fever. He was recently seen in the emergency room and had ultrasound of his testicles on July [address] scan that showed underdistention. He Did follow up with his primary care doctor. Decided come the emergency room tonight as he had increasing lower abdominal pain woke him from sleep rather severe. He has had ongoing watery diarrhea. He reports to me that he dropped off stool specimen today at the hospital was called that it C diff positive he is not started on antibiotics. 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 Family History: Noncontributory ROS REVIEW OF SYSTEMS: 10 Systems were reviewed and negative with the exception of the elements mentioned in the history of present illness. Exam Constitutional triage nursing summary reviewed, vital signs reviewed, awake/ alert. Eyes normal conjunctivae and sclera, EOMI, PERRLA. HENT normal inspection, atraumatic, moist mucus membranes, no epistaxis, neck supple/ no meningismus, no raccoon eyes. Respiratory clear to auscultation bilaterally, normal breath sounds, no respiratory distress, no wheezing. Cardiovascular rate normal, regular rhythm, no murmur, no edema, distal pulses normal. Gastrointestinal mildly tender diffusely, worse in the right lower quadrant, no peritoneal signs. Genitourinary no CVA tenderness. Musculoskeletal no midline vertebral tenderness, full range of motion, no calf swelling, no tenderness of extremities, no meningismus, good pulses, neurovascularly intact. Skin pink, warm, & dry, no rash, skin atraumatic. Neurologic awake, alert and oriented x 3, AAOx3, moves all 4 extremities equally, motor intact, sensory intact, CN II-XII intact, normal cerebellar, normal vision, normal speech. Psychiatric normal mood/affect. Heme/Lymph/Immune no lymphadenopathy. Differential Diagnosis: Differential diagnosis includes but is not limited to and in no particular order: Bowel obstruction, appendicitis, gallbladder disease, diverticulitis, colitis, enteritis, perforated viscus, gastritis, GERD , esophagitis, urinary tract infection, pyelonephritis, kidney stones Medical Decision Making: Plan for this patient IV establishment IV fluid bolus , IV Dilaudid 0.5 mg for pain control IV Zofran 4 mg for nausea, basic labs, CT scan abdomen pelvis with IV contrast rule out significant colitis. Re-evaluation: 0329: CT scan abdomen pelvis with IV contrast no acute abdominal or pelvic abnormality normal appendix mild diverticulosis. 7mm angiomyolipoma of the left kidney. No hydro. Source: Patient - Personal History Current Tetanus Diphtheria and Acellular Pertussis (TDAP): Yes - Medical/Surgical History Hx Asthma: Yes Hx Chronic Respiratory Disease: No Hx Diabetes: No Hx Cardiac Disease: No Hx Renal Disease: No Hx Cirrhosis: No Hx Alcoholism: No Hx HIV/AIDS: No Hx Splenectomy or Spleen Trauma: No Other PMH: asthma, bipolar?,depression, OCD - Social History Smoking Status: Current every day smoker Constitutional: Initial Vital Signs Temperature (C) 37 C 07/18/18 01:43 Heart Rate 112 H 07/18/18 01:43 Respiratory Rate 18 07/18/18 01:43 Blood Pressure 136/82 H 07/18/18 01:43 O2 Sat (%) 97 07/18/18 01:43 O2 Delivery Mode Room Air Allergies/Adverse Reactions: cefixime [From Suprax] Allergy (Verified 07/04/18 18:30) cefuroxime axetil [From Ceftin] Allergy (Verified 07/04/18 18:30) clarithromycin [From Biaxin] Allergy (Verified 07/04/18 18:30) erythromycin base [Erythromycin Base] Allergy (Verified 07/04/18 18:30) montelukast sodium [From Singulair] Allergy (Verified 07/04/18 18:30) peanut Allergy (Verified 07/04/18 18:30) Penicillins Allergy (Verified 07/04/18 18:30) tree nut Allergy (Verified 07/04/18 18:30) Home Medications: Medication Instructions Recorded LORazepam [Ativan] 0.5 mg PO BID PRN 09/07/14 Albuterol [Ventolin Hfa Inhaler] 1 - 2 puffs IH Q4 PRN 07/18/18 Ibuprofen [Motrin (*)] 800 mg PO Q8 PRN 07/18/18 OLANZapine [Zyprexa] 10 mg PO DAILY PRN 07/18/18 OXcarbazepine [Trileptal 300mg (*)] 900 mg PO HS 07/18/18 Ondansetron Odt [Zofran Odt 4 mg 4 mg PO Q4HRS PRN #21 tab 07/18/18 (*)] Propranolol HCl [Inderal 20mg (*)] 20 mg PO DAILY 07/18/18 Propranolol HCl [Inderal 20mg (*)] 30 mg PO HS 07/18/18 QUEtiapine FUMARATE [Seroquel 900 mg PO HS 07/18/18 300mg (*)] Vancomycin [Vancomycin (*)] 125 mg PO Q6 #36 cap 07/18/18 lamOTRIGine [Lamotrigine] 300 mg PO DAILY 07/18/18 Medical Decision Making - Data Points Laboratory Results: Laboratory Results 07/18/18 02:00 07/18/18 02:00 Medications Given: Acetaminophen (Tylenol) 650 mg PO Q4HRS PRN PRN Reason: Pain, Mild/Fever, Can Take PO Stop: 01/14/19 05:24 Last Admin: 07/18/18 23:49 Dose: 650 mg Hydrocodone Bitart/Acetaminophen ([place] 5/325) 1 - 2 tab PO Q4HRS PRN PRN Reason: Pain, Moderate Able to Take PO Stop: 07/28/18 05:24 Last Admin: 07/18/18 21:53 Dose: 1 tab Sodium Chloride (Ns) 1,000 mls @ 125 mls/hr IV CONT SHALONDA Stop: 01/14/19 05:29 Last Admin: 07/18/18 23:44 Dose: 1,000 mls Ketorolac Tromethamine (Toradol) 15 mg IVP Q6HRS PRN PRN Reason: Pain, Breakthrough Stop: 07/23/18 05:59 Last Admin: 07/18/18 06:23 Dose: 15 mg Lamotrigine (Lamictal) 300 mg PO DAILY SHALONDA Stop: 01/14/19 11:44 Last Admin: 07/18/18 12:34 Dose: 300 mg Lorazepam (Ativan) 0.5 - 1 mg PO Q8HRS PRN PRN Reason: Anxiety, Able to Take PO Stop: 01/14/19 05:24 Last Admin: 07/18/18 16:17 Dose: 0.5 mg Nicotine (Nicoderm Cq) 21 mg TD DAILY ON LICENSE OF [facility] Stop: 01/14/19 15:59 Last Admin: 07/18/18 16:17 Dose: 21 mg Oxcarbazepine (Trileptal) 900 mg PO HS ON LICENSE OF [facility] Stop: 01/14/19 20:59 Last Admin: 07/18/18 21:46 Dose: 900 mg Propranolol HCl (Inderal) 30 mg PO HS ON LICENSE OF [facility] Stop: 01/14/19 20:59 Last Admin: 07/18/18 21:46 Dose: 30 mg Propranolol HCl (Inderal) 20 mg PO DAILY ON LICENSE OF [facility] Stop: 01/14/19 12:14 Last Admin: 07/18/18 12:34 Dose: 20 mg Quetiapine Fumarate (Seroquel) 900 mg PO HS ON LICENSE OF [facility] Stop: 01/14/19 20:59 Last Admin: 07/18/18 21:45 Dose: 900 mg Vancomycin HCl (Vancomycin Oral Liquid) 250 mg PO QID ON LICENSE OF [facility] PRN Reason: Protocol Stop: 08/17/18 05:59 Last Admin: 07/18/18 21:47 Dose: 250 mg Discontinued Medications Hydromorphone HCl (Dilaudid) 0.5 mg IVP EDNOW ONE Stop: 07/18/18 01:59 Last Admin: 07/18/18 02:16 Dose: 0.5 mg Sodium Chloride (Ns) 1,000 mls @ 0 mls/hr IV EDNOW ONE; Wide Open PRN Reason: Protocol Stop: 07/18/18 01:52 Last Admin: 07/18/18 02:10 Dose: 1,000 mls Sodium Chloride (Ns) 1,000 mls @ 0 mls/hr IV EDNOW ONE; Wide Open PRN Reason: Protocol Stop: 07/18/18 01:52 Last Admin: 07/18/18 02:11 Dose: 1,000 mls Ondansetron HCl (Zofran) 4 mg IVP EDNOW ONE Stop: 07/18/18 01:52 Last Admin: 07/18/18 02:11 Dose: 4 mg Departure - Departure Disposition: [facility] Inpatient Acute Clinical Impression: Clostridium difficile colitis Abdominal pain Qualifiers: Abdominal location: generalized Qualified Code(s): R10.84 - Generalized abdominal pain Condition: Fair
[2018-07-18] MEDS ORDERED: HYDROmorphONE/DILAUDID 2 MG/ML INJ IVP ONE (01:58)
[2018-07-18 02:11] LABS: PLATELET COUNT 216 10^3/uL (150-400)
[2018-07-18] MEDS ORDERED: HYDROmorphONE/DILAUDID 1 MG/ML INJ ONE (02:14)
[2018-07-18 02:28] LABS: INR 0.98 (0.83-1.16); PROTIME(PATIENT) 12.6 SEC (12.0-15.0)
[2018-07-18] MEDS ORDERED: IOPAMIDOL (ISOVUE-300) 100 ML BTL ONE (02:34)
[2018-07-18] MEDS ORDERED: HYDROCODONE/APAP 5/325 TAB PO PRN (05:25)
[2018-07-18] MEDS ORDERED: ONDANSETRON DISINTEGRATING 4 MG TAB PO PRN (05:25)
[2018-07-18] MEDS ORDERED: ACETAMINOPHEN 325 MG TAB PO PRN (05:25)
[2018-07-18] MEDS ORDERED: ONDANSETRON 4 MG/2 ML VIAL IVP PRN (05:25)
[2018-07-18] MEDS ORDERED: LORazepam 0.5 MG TAB PO PRN (05:25)
[2018-07-18] MEDS ORDERED: diphenhydrAMINE 25 MG CAP PO PRN (05:25)
[2018-07-18] MEDS ORDERED: KETOROLAC 15 MG/1 ML SDV IVP PRN (05:35)
[2018-07-18] MEDS: VANCOMYCIN 125 MG/2.5 ML UDL PO SCH ×4 (06:22→21:47)
[2018-07-18] MEDS: NS 1,000 ML IV SCH ×3 (06:25→23:44)
--- NOTE | 2018-07-18 08:40 | PDGENHP ---
History and Physical - Chief Complaint Abdominal pain, nausea vomiting - History of Present Illness Source- Patient provides history and appears reliable. EMR reviewed and case discussed with ED provider. HPI - This is a pleasant 28 yo M with pmhx significant for bipolar/depression, OCD, asthma who presents to the ED today with complaints of right sided abdominal pain, nausea/vomiting and diarrhea. patient denies any hematemesis, melena or hematochezia. Patient reports his symptoms started approximately 18- 30 days ago but more acutely in the last several days. patient notes radiating pain from right side to his back. Additionally patient underwent extensive work up for evaluation of abdominal and testicular pain approximately 10 days ago. Patient at that time reported testicular pain, dysuria and pain with defecation. Work up at that time was nondiagnostic including CT abdomen pelvis and testicular ultrasound.. Patient reports subjective fevers/sweats, fatigue. He has been experiencing a cough that is stable and occasional increased in SOB with pain. Patient saw his PCP and had outpatient studies ordered including C diff which returned positive. Patient was advised to go to the emergency department for his worsening symptoms History Information - Allergies/Home Medication List Allergies/Adverse Reactions: cefixime [From Suprax] Allergy (Verified 07/04/18 18:30) cefuroxime axetil [From Ceftin] Allergy (Verified 07/04/18 18:30) clarithromycin [From Biaxin] Allergy (Verified 07/04/18 18:30) erythromycin base [Erythromycin Base] Allergy (Verified 07/04/18 18:30) montelukast sodium [From Singulair] Allergy (Verified 07/04/18 18:30) peanut Allergy (Verified 07/04/18 18:30) Penicillins Allergy (Verified 07/04/18 18:30) tree nut Allergy (Verified 07/04/18 18:30) Home Medications: LORazepam [Ativan] 1 mg PO 09/07/14 [Last Taken Unknown] ARIPiprazole [Abilify] 20 mg PO 07/30/17 [Last Taken Unknown] OLANZapine 08/06/17 [Last Taken Unknown] Albuterol [Ventolin Hfa Inhaler] 1 - 2 puffs IH Q4 PRN 07/18/18 [Last Taken Unknown] Fluticasone/Salmeter 250/50Mcg [Advair 250/50 (*)] 1 puffs IH BID 07/18/18 [ Last Taken Unknown] OXcarbazepine [Trileptal 300mg (*)] 900 mg PO HS 07/18/18 [Last Taken Unknown] Propranolol HCl [Inderal 20mg (*)] 20 mg PO DAILY 07/18/18 [Last Taken Unknown] Propranolol HCl [Inderal 20mg (*)] 30 mg PO HS 07/18/18 [Last Taken Unknown] QUEtiapine FUMARATE [Seroquel 300mg (*)] 600 mg PO HS 07/18/18 [Last Taken Unknown] lamOTRIGine [Lamotrigine] 300 mg PO DAILY 07/18/18 [Last Taken Unknown] I have personally reviewed and updated: family history, medical history, social history, surgical history - Past Medical History Additional medical history: bipolar disorder. OCD. hx etoh with history of remission, now pt with daily use 1 drink/day. asthma - Surgical History Additional surgical history: denies - Family History Additional family history: f- HTN, CAD, etoh/substance abuse. 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 He Lives alone. COR - FULL. Review of Systems Review of Systems: ROS: 10pt was reviewed & negative except for what was stated in HPI & below Constitutional: Reports: fever, other (sweats. ). Denies: chills Physical Exam Physical Exam: Selected Entries 07/18/18 01:43 Heart Rate 112 H Respiratory 18 Rate O2 Sat (%) 97 Temperature (C) 37 C Blood Pressure 136/82 H Mean Arterial 100 Pressure (MAP) O2 Delivery Room Air Mode Temp Pulse Resp BP Pulse Ox 36.4 C 74 18 121/79 H 98 07/18/18 05:58 07/18/18 05:58 07/18/18 05:58 07/18/18 05:58 07/18/18 05:58 Constitutional: no apparent distress, uncomfortable, other (Patient is lying on his left side. It appears fatigued and uncomfortable. Nontoxic but acutely ill.) Eyes: PERRL (Slightly decreased reactivity light bilaterally but symmetric), anicteric sclera, EOMI, No scleral injection Ears, Nose, Mouth, Throat: poor dentition (Dictation in fair condition.), dry mucous membranes, other (No nasal discharge.) Cardiovascular: regular rate and rhythym, no murmur, rub, or gallop, pulses symmetric bilaterally, No edema Peripheral Pulses: 2+: dorsalis-pedis (R), dorsalis-pedis (L) Respiratory: no respiratory distress, no rales or rhonchi, clear to auscultation Gastrointestinal: soft, non-tender abdomen, distension (Mild distention but soft. No significant discomfort palpation.), other (PE a hypoactive bowel sounds.), No guarding Genitourinary: no bladder tenderness, No doll in urethra Skin: warm, normal color (Patient slightly flushed.), no rashes or abrasions Musculoskeletal: full muscle strength (Patient able to sit up independently.), other (Moves all extremities.), No generalized weakness Neurologic: AAOx3, sensation intact bilaterally, other (Grossly nonfocal exam.) , No facial droop Psychiatric: interacting appropriately, not encephalopathic, thought process linear, anxious, other (Patient pleasant and cooperative.Thought process, content and questions appropriate.) Lab Data & Imaging Review 07/18/18 02:00 07/18/18 02:00 WBC 9.39 10^3/uL (3.80-9.50) 07/18/18 02:00 RBC 4.30 10^6/uL (4.40-6.38) L 07/18/18 02:00 Hgb 13.7 g/dL (13.7-17.5) 07/18/18 02:00 Hct 39.6 % (40.0-51.0) L 07/18/18 02:00 MCV 92.1 fL (81.5-99.8) 07/18/18 02:00 MCH 31.9 pg (27.9-34.1) 07/18/18 02:00 MCHC 34.6 g/dL (32.4-36.7) 07/18/18 02:00 RDW 12.4 % (11.5-15.2) 07/18/18 02:00 Plt Count 216 10^3/uL (150-400) 07/18/18 02:00 MPV 9.7 fL (8.7-11.7) 07/18/18 02:00 Neut % (Auto) 68.5 % (39.3-74.2) 07/18/18 02:00 Lymph % (Auto) 18.8 % (15.0-45.0) 07/18/18 02:00 Cooke % (Auto) 6.7 % (4.5-13.0) 07/18/18 02:00 Eos % (Auto) 5.1 % (0.6-7.6) 07/18/18 02:00 Baso % (Auto) 0.7 % (0.3-1.7) 07/18/18 02:00 Nucleat RBC Rel Count 0.0 % (0.0-0.2) 07/18/18 02:00 Absolute Neuts (auto) 6.42 10^3/uL (1.70-6.50) 07/18/18 02:00 Absolute Lymphs (auto) 1.77 10^3/uL (1.00-3.00) 07/18/18 02:00 Absolute Monos (auto) 0.63 10^3/uL (0.30-0.80) 07/18/18 02:00 Absolute Eos (auto) 0.48 10^3/uL (0.03-0.40) H 07/18/18 02:00 Absolute Basos (auto) 0.07 10^3/uL (0.02-0.10) 07/18/18 02:00 Absolute Nucleated RBC 0.00 10^3/uL (0-0.01) 07/18/18 02:00 Immature Gran % 0.2 % (0.0-1.1) 07/18/18 02:00 Immature Gran # 0.02 10^3/uL (0.00-0.10) 07/18/18 02:00 PT 12.6 SEC (12.0-15.0) 07/18/18 02:00 INR 0.98 (0.83-1.16) 07/18/18 02:00 APTT 32.4 SEC (23.0-38.0) 07/18/18 02:00 Sodium 141 mEq/L (135-145) 07/18/18 02:00 Potassium 3.6 mEq/L (3.5-5.2) 07/18/18 02:00 Chloride 108 mEq/L (97-110) 07/18/18 02:00 Carbon Dioxide 24 mEq/l (22-31) 07/18/18 02:00 Anion Gap 9 mEq/L (6-14) 07/18/18 02:00 BUN 9 mg/dL (7-23) 07/18/18 02:00 Creatinine 0.8 mg/dL (0.7-1.3) 07/18/18 02:00 Estimated GFR > 60 07/18/18 02:00 Glucose 119 mg/dL (70-100) H 07/18/18 02:00 Calcium 9.1 mg/dL (8.5-10.4) 07/18/18 02:00 Total Bilirubin 0.3 mg/dL (0.1-1.4) 07/18/18 02:00 Conjugated Bilirubin 0.3 mg/dL (0.0-0.5) 07/18/18 02:00 Unconjugated Bilirubin 0.0 mg/dL (0.0-1.1) 07/18/18 02:00 AST 17 IU/L (17-59) 07/18/18 02:00 ALT 19 IU/L (21-72) L 07/18/18 02:00 Alkaline Phosphatase 92 IU/L (38-126) 07/18/18 02:00 Total Protein 7.2 g/dL (6.3-8.2) 07/18/18 02:00 Albumin 4.4 g/dL (3.5-5.0) 07/18/18 02:00 Lipase 125 IU/L (23-300) 07/18/18 02:00 Urine Color COLORLESS 07/18/18 02:00 Urine Appearance CLEAR 07/18/18 02:00 Urine pH 6.0 (5.0-7.5) 07/18/18 02:00 Ur Specific Prosser 1.003 (1.002-1.030) 07/18/18 02:00 Urine Protein NEGATIVE (NEGATIVE) 07/18/18 02:00 Urine Ketones NEGATIVE (NEGATIVE) 07/18/18 02:00 Urine Blood NEGATIVE (NEGATIVE) 07/18/18 02:00 Urine Nitrate NEGATIVE (NEGATIVE) 07/18/18 02:00 Urine Bilirubin NEGATIVE (NEGATIVE) 07/18/18 02:00 Urine Urobilinogen NEGATIVE EU (0.2-1.0) 07/18/18 02:00 Ur Leukocyte Esterase NEGATIVE (NEGATIVE) 07/18/18 02:00 Urine Glucose NEGATIVE (NEGATIVE) 07/18/18 02:00 Imaging Review: CT Scan of the Abdomen and Pelvis (With Contrast) 0243 hours History: Worsening abdominal pain, positive C. Difficile, rule out colitis Technique: Axial computed tomographic images of the abdomen and pelvis were obtained with the uneventful intravenous administration of 98 mL Isovue-300 contrast. Images were reviewed in multiple planes. Dose reduction techniques were utilized. Comparison prior CT study from 07/04/2018. CT Abdomen and Pelvis Findings: Lung bases: Normal. Liver: Normal. Spleen: Normal. Gallbladder and Bile Ducts: Normal. Pancreas: Normal. Adrenals: Normal. Kidneys: No obstruction or solid masses. Abdominal Aorta: No aneurysm. Pelvic structures: Normal. Bladder: Normal. Appendix: Normal. Bowel Loops: Normal. No bowel obstruction, ascites, or significant retroperitoneal lymphadenopathy. Increased number of normal-sized nodes are once again seen in the mesentery stable in appearance. Skeletal system: Vertebral body heights are well-maintained. There are no significant lytic or sclerotic osseous lesions. Impression: 1. Stable increased number of small benign-appearing lymph nodes in the mesentery. Consider mesenteric adenitis. 2. No CT evidence of appendicitis, abscess, significant bowel wall thickening, or bowel obstruction. Assessment & Plan Assessment: This is a pleasant 28 yo M with pmhx significant for bipolar/depression, OCD, asthma who presents to the ED today with complaints of right sided abdominal pain, nausea/vomiting and diarrhea #Clostridium difficile - patient started oral vancomycin therapy. His earlier stooled studies returned positive. Since arrival to the ER patient has not had any bowel movements but he continues to complain of abdominal pain. #Abdominal pain (Acute) - prn medications including toradol discussed. will try to avoid narcotics. #Nausea/vomiting - Zofran/phenergan however patient has note required at time of my interview. #dehydration - IVF. advance diet as tolerated and hydrate. chronic medical issues Bipolar disorder - resume patient home medications when med rec available. resume lamictal, seroquel, propranolol, trilepta, abilify, lorazepam OCD - supportve care. History of alcohol daily - cessation encouraged. patient reports he has cut back. Asthma - patient reports resolved in childhood. FEN - IVF. advance diet as tolerated. electrolytes adequate. PPX - SCDs. lovenox. COR - FULL. Dispo - Patient admitted to observation with c/o worsening abdominal pain, nausea/vomiting/diarrhea.
--- NOTE | 2018-07-18 11:09 | ASMTCMCOM ---
CM Note CM Note Notes: Pt admitted to hospital for n/v abdominal pain and diarrhea. Pt positive for cdiff, has started on oral vancomycin. He is otherwise independent and will dc home when medically stable. Does have a hx of bipolar/dep/ocd/etoh. DC Plan:Independent Date Signed: 07/18/2018 11:09 AM Electronically Signed By:Sherri Colon RN
[2018-07-18] MEDS ORDERED: ALBUTEROL INH PREPACK MDI TAKEHOME PRN (11:44)
[2018-07-18] MEDS ORDERED: OLANZapine 10 MG TAB PO PRN (11:44)
[2018-07-18] MEDS ORDERED: LORazepam 1 MG TAB PO PRN (11:44)
[2018-07-18] MEDS ORDERED: ALBUTEROL 60 PUFFS/8 GM MDI IH PRN (12:06)
[2018-07-18] MEDS: lamoTRIgine 100 MG TAB PO SCH (12:34)
[2018-07-18] MEDS: PROPRANOLOL HCL 20 MG TAB PO SCH (12:34)
--- NOTE | 2018-07-18 13:58 | HOSPPROG ---
Hospitalist Progress Note Assessment/Plan: Patient is a 28-year-old male who presented the emergency room with complaints of right-sided abdominal pain with associated nausea vomiting and diarrhea. Today is my 1st encounter with the patient. Chart reviewed. *Clostridium difficile - patient started oral vancomycin therapy *Abdominal pain (Acute) CT scan shows no appendicitis, abscess or significant bowel wall thickening or bowel obstruction. He has stable increased number of small benign-appearing lymph nodes in the mesentery. Consider mesenteric adenitis (his pain is in the RLQ area) -watch closely -has an appt w a GI specialist this month *Nausea/vomiting -having ongoing nausea, no vomiting *dehydration - IVF -only wanting clear liquids *Bipolar disorder -Lamictal, Seroquel, propranolol, Trileptal, Abilify, lorazepam *OCD *History of alcohol daily - cessation encouraged *plan: watch overnight to be sure his pain resolves and that he can eat, scripts sent to [facility] here in the hospital today so if he is feeling better in the morning they are available on dc. >30 minutes seeing and f/u with Hector Subjective: Hector said he only can eat clears, describes abdominal pain as being severe last night, ongoing in rlq this morning. Objective: Vital Signs Temp Pulse Resp BP Pulse Ox 36.6 C 76 16 132/81 H 97 07/18/18 11:07 07/18/18 12:34 07/18/18 11:07 07/18/18 12:34 07/18/18 11:07 07/17/18 07/18/18 07/19/18 05:59 05:59 05:59 Intake Total 2000 Balance 2000 PT 12.6 SEC (12.0-15.0) 07/18/18 02:00 INR 0.98 (0.83-1.16) 07/18/18 02:00 - Physical Exam Constitutional: uncomfortable Eyes: PERRL Ears, Nose, Mouth, Throat: hearing normal Cardiovascular: regular rate and rhythym Respiratory: no respiratory distress Gastrointestinal: normoactive bowel sounds, tenderness (rlq) Skin: warm Musculoskeletal: full muscle strength Neurologic: AAOx3 Psychiatric: interacting appropriately ICD10 Worksheet Patient Problems: Problems Problem Status Onset Abdominal pain Acute Clostridium difficile colitis Acute
[2018-07-18] MEDS: NICOTINE 21 MG/24 HR PATCH TD SCH (16:17)
[2018-07-18] MEDS ORDERED: OXcarbazepine 300 MG TAB PO SCH (21:00)
[2018-07-18] MEDS ORDERED: QUEtiapine FUMARATE 300 MG TAB PO SCH (21:00)
[2018-07-18] MEDS ORDERED: PROPRANOLOL HCL 20 MG TAB PO SCH (21:00)
[2018-07-19] MEDS: VANCOMYCIN 125 MG/2.5 ML UDL PO SCH (05:39)
[2018-07-19 07:54] VITALS: BP 113/82
--- NOTE | 2018-07-19 09:52 | HOSPPROG ---
Hospitalist Progress Note Assessment/Plan: Patient is a 28-year-old male who presented the emergency room with complaints of right-sided abdominal pain with associated nausea vomiting and diarrhea. *Clostridium difficile - patient started oral vancomycin therapy *Abdominal pain (Acute) CT scan shows no appendicitis, abscess or significant bowel wall thickening or bowel obstruction. He has stable increased number of small benign-appearing lymph nodes in the mesentery. Consider mesenteric adenitis (had pain in the RLQ area which is much improved) -has an appt w a GI specialist this month *Nausea/vomiting -resolved *dehydration - IVF *Bipolar disorder -Lamictal, Seroquel, propranolol, Trileptal, Abilify, lorazepam *OCD *History of alcohol daily - cessation encouraged *plan: dc home w f/u with his PCP Subjective: Hector is feeling much improved today, slept well; abdominal pain much improved. Objective: Vital Signs Temp Pulse Resp BP Pulse Ox 36.6 C 78 15 113/82 H 98 07/19/18 07:52 07/19/18 07:52 07/19/18 07:52 07/19/18 07:52 07/19/18 07:52 07/18/18 07/19/18 07/20/18 05:59 05:59 05:59 Intake Total 1999 400 Balance 1999 400 PT 12.6 SEC (12.0-15.0) 07/18/18 02:00 INR 0.98 (0.83-1.16) 07/18/18 02:00 - Physical Exam Constitutional: no apparent distress, appears nourished, not in pain Eyes: PERRL Ears, Nose, Mouth, Throat: hearing normal Gastrointestinal: tenderness (slight in r lower quadrant, but much less today) Skin: warm Musculoskeletal: full muscle strength Neurologic: AAOx3 Psychiatric: interacting appropriately ICD10 Worksheet Patient Problems: Problems Problem Status Onset Abdominal pain Acute Clostridium difficile colitis Acute
[2018-07-19] MEDS: lamoTRIgine 100 MG TAB PO SCH (10:07)
[2018-07-19] MEDS: PROPRANOLOL HCL 20 MG TAB PO SCH (10:07)
[2018-07-19] MEDS: NICOTINE 21 MG/24 HR PATCH TD SCH (10:08)
--- NOTE | 2018-07-19 10:22 | GDS ---
[f rep st] DISCHARGE SUMMARY DISCHARGE DIAGNOSES: 1. Clostridium difficile colitis. 2. Abdominal pain. 3. Nausea and vomiting. 4. Dehydration. 5. Bipolar disorder. 6. Obsessive/compulsive disorder. 7. Alcohol use. HISTORY: Briefly, Nate Guardado is a 28-year-old male who presented to the emergency room with comp laints of right-sided abdominal pain with associated nausea, vomiting, and diarrhea. He had a CT sca n that showed no appendicitis, abscess, or significant bowel wall thickening or bowel obstruction. H e has stable increased number small, benign-appearing lymph nodes in the mesentery. You could consid er mesenteric adenitis. He did have pain in the right lower quadrant area. This is overall improved significantly. He will be discharged home. He has a vice president of operations, whom he has an appointment with in approximately a week. HOSPITAL COURSE: 1. Clostridium difficile colitis, started on oral vancomycin therapy, not having any diarrhea today. 2. Abdominal pain, almost completely resolved. 3. Nausea, vomiting, resolved. 4. Dehydration, eating and drinking. 5. Bipolar disorder, stable. 6. Obsessive/compulsive disorder, stable. 7. History of alcohol use. Encouraged him to stop all alcohol with having problems with abdominal p ain. He agrees that this is not helping him and is planning on discontinuing. DISCHARGE CONDITION: Stable. Blood pressure is 113/82, O2 sats on room air 98%, respiratory rate is 15, pulse is 78, temperature is 36.6 Celsius. MEDICATIONS AT DISCHARGE: Please see the EMR. DISCHARGE INSTRUCTIONS: 1. Follow up with the vice president of operations and urologist as scheduled. 2. Avoid alcohol. 3. Take vancomycin as prescribed. 4. Return to the ER if he develops fever, chills, chest pain, shortness of breath, or worsening abdo broderick pain. /[id number]/MODL
--- NOTE | 2018-07-19 15:06 | ASDISCHSUM ---
Discharge Information Plan Status:Home with No Needs Medically Cleared to Leave:07/19/2018 Discharge Date:07/19/2018 10:45 AM CM D/C Disposition:Home, Routine, Self-Care ADT D/C Disposition:Home, Routine, Self-Care Projected Discharge Date:07/19/2018 10:45 AM Transportation at D/C:Friend Discharge Delay Reason: Follow-Up Date:07/19/2018 10:45 AM Discharge Slot: Final Diagnosis: Placement Information Patient Contact Information Contact Name:DONALDMERShefali Relationship:Mother Address:[address] City:[place] Alternate Phone: State/Zip Code:[place] [address] Email: Financial Information Financial Class:BC Primary Plan Desc:[employer] Primary Plan Number:[id number] Secondary Plan Desc: Secondary Plan Number: Assessment Information LACE LACE Length of stay for Answers: 1 day current admission Acuity / Level of Answers: No Care: Did the patient have an inpatient admission? # of Emergency department Answers: 3-4 visits in the last 6 months Social determinants Answers: History of substance abuse (ETOH, street drugs, prescription drugs, etc.) Mental health diagnosis (anxiety, depression, pers onality disorders, etc.) Score: 10 Date Signed: 07/19/2018 03:05 PM Electronically Signed By:CORRINE Barraza [facility] CM Progress Note CM Note CM Note Notes: Pt admitted to hospital for n/v abdominal pain and diarrhea. Pt positive for cdiff, has started on oral vancomycin. He is otherwise independent and will dc home when medically stable. Does have a hx of bipolar/dep/ocd/etoh. DC Plan:Independent Date Signed: 07/18/2018 11:09 AM Electronically Signed By:Sherri Colon RN Intervention Information
--- NOTE | 2018-07-19 15:07 | ASMTDCNOTE ---
Case Management Discharge Discharge Order Complete? Answers: Yes Patient to Obtain Answers: Independently Medications Transportation Arranged Answers: Family/Friends Discharge Comments Notes: Pt medically cleared for d/c today. He is discharging home independent with no CM needs. Date Signed: 07/19/2018 03:07 PM Electronically Signed By:CORRINE Barraza
== END 2018-07-19 10:45 | disposition home or self-care (01) ==
LOC: F3E 05:53
PROVIDERS: ADMIT Family Medicine; ATTEND Internal Medicine
DX: A04.72 Enterocolitis due to Clostridium difficile, not specified as recurrent (principal); E86.0 Dehydration; F31.9 Bipolar disorder, unspecified; F42.9 Obsessive-compulsive disorder, unspecified; F10.929 Alcohol use, unspecified with intoxication, unspecified; J45.909 Unspecified asthma, uncomplicated; F17.210 Nicotine dependence, cigarettes, uncomplicated
CPT/HCPCS: 74177; 96361; 96374; 96375; 99285; G0378; J1170; J1885; J2405; Q9967

== ENCOUNTER 2018-07-21 23:20 | Emergency (ER) | payer OTHER ==
[2018-07-21] MEDS ORDERED: NS 1,000 ML IV ONE (23:58)
[2018-07-22] MEDS ORDERED: NS 1,000 ML IV ONE (00:18)
[2018-07-22] MEDS ORDERED: KETOROLAC 15 MG/1 ML SDV IVP ONE (00:18)
[2018-07-22] MEDS ORDERED: ONDANSETRON 4 MG/2 ML VIAL IVP ONE (00:18)
--- NOTE | 2018-07-22 00:18 | EDPHY ---
H & P Stated Complaint: dx with C diff, worsening pain/nausea/vomiting, PO meds less effective Time Seen by Provider: 07/22/18 00:06 HPI/ROS: Chief Complaint: Abdominal pain, vomiting, diarrhea HPI: 20-year-old male who was recently hospitalized and diagnosed with C difficile colitis. He was sent home on oral vancomycin. Patient states that he is continuing to have nausea vomiting and diarrhea. Feels very weak. Is having upper abdominal pain. She has not been able to keep any solid foods down. Is able to keep down his antibiotics and some oral fluids. Has general malaise and fatigue. Also feels some mildly short of breath. Patient states this is how he felt when he was in the hospital. Patient has not been on recent antibiotics. They are uncertain of the source of his C difficile. Does get some relief with Zofran at home. Last took it about 2 hr ago. ROS: 10 systems were reviewed and were negative except those elements noted in the HPI. PMH: Bipolar disorder, so some compulsive disorder, C difficile colitis Social History: No smoking, no alcohol, no recreational drug use Family History: non-contributory Physical Exam: Gen: Awake, Alert, No Distress HEENT: Nose: no rhinorrhea Eyes: PERRLA, EOMI Mouth: Moist mucosa Neck: Supple, no JVD Chest: nontender, lungs clear to auscultation Heart: S1, S2 normal, no murmur Abd: Soft, non-tender, no guarding Back: no CVA tenderness, no midline tenderness Ext: no edema, non-tender Skin: no rash Neuro: CN II-XII intact, Sensation grossly intact, Strength 5/5 in bilateral upper and lower extremities - Personal History Current Tetanus/Diphtheria Vaccine: Yes Current Tetanus Diphtheria and Acellular Pertussis (TDAP): Yes - Medical/Surgical History Hx Asthma: Yes Hx Chronic Respiratory Disease: No Hx Diabetes: No Hx Cardiac Disease: No Hx Renal Disease: No Hx Cirrhosis: No Hx Alcoholism: No Hx HIV/AIDS: No Hx Splenectomy or Spleen Trauma: No Other PMH: asthma, bipolar?,depression, OCD, C diff - Social History Smoking Status: Current every day smoker Constitutional: Initial Vital Signs Temperature (C) 36.7 C 07/21/18 23:28 Heart Rate 95 07/21/18 23:28 Respiratory Rate 20 07/21/18 23:28 Blood Pressure 134/89 H 07/21/18 23:28 O2 Sat (%) 96 07/21/18 23:28 O2 Delivery Mode Room Air Allergies/Adverse Reactions: cefixime [From Suprax] Allergy (Verified 07/21/18 23:27) cefuroxime axetil [From Ceftin] Allergy (Verified 07/21/18 23:27) clarithromycin [From Biaxin] Allergy (Verified 07/21/18 23:27) erythromycin base [Erythromycin Base] Allergy (Verified 07/21/18 23:27) montelukast sodium [From Singulair] Allergy (Verified 07/21/18 23:27) peanut Allergy (Verified 07/21/18 23:27) Penicillins Allergy (Verified 07/21/18 23:27) tree nut Allergy (Verified 07/21/18 23:27) Home Medications: Medication Instructions Recorded LORazepam [Ativan] 0.5 mg PO BID PRN 09/07/14 Albuterol [Ventolin Hfa Inhaler] 1 - 2 puffs IH Q4 PRN 07/18/18 OLANZapine [Zyprexa] 10 mg PO DAILY PRN 07/18/18 OXcarbazepine [Trileptal 300mg (*)] 900 mg PO HS 07/18/18 Ondansetron Odt [Zofran Odt 4 mg 4 mg PO Q4HRS PRN #21 tab 07/18/18 (*)] Propranolol HCl [Inderal 20mg (*)] 20 mg PO DAILY 07/18/18 Propranolol HCl [Inderal 20mg (*)] 30 mg PO HS 07/18/18 QUEtiapine FUMARATE [Seroquel 900 mg PO HS 07/18/18 300mg (*)] Vancomycin [Vancomycin (*)] 125 mg PO Q6 #36 cap 07/18/18 lamOTRIGine [Lamotrigine] 300 mg PO DAILY 07/18/18 Medical Decision Making ED Course/Re-evaluation: Patient is improved after IV fluids and antiemetics. He is requesting to go home. He has antiemetics and his vancomycin at home. He will follow up with GI as an outpatient, return for any concerns. - Data Points Laboratory Results: Laboratory Results 07/22/18 00:00 07/22/18 00:00 07/22/18 07/22/18 00:00 00:00 WBC 9.38 10^3/uL 10^3/uL (3.80-9.50) RBC 4.51 10^6/uL 10^6/uL (4.40-6.38) Hgb 14.4 g/dL g/dL (13.7-17.5) Hct 40.6 % % (40.0-51.0) MCV 90.0 fL fL (81.5-99.8) MCH 31.9 pg pg (27.9-34.1) MCHC 35.5 g/dL g/dL (32.4-36.7) RDW 12.0 % % (11.5-15.2) Plt Count 237 10^3/uL 10^3/uL (150-400) MPV 9.8 fL fL (8.7-11.7) Neut % (Auto) 66.8 % % (39.3-74.2) Lymph % (Auto) 22.2 % % (15.0-45.0) [place] % (Auto) 6.9 % % (4.5-13.0) Eos % (Auto) 3.2 % % (0.6-7.6) Baso % (Auto) 0.5 % % (0.3-1.7) Nucleat RBC Rel Count 0.0 % % (0.0-0.2) Absolute Neuts (auto) 6.26 10^3/uL 10^3/uL (1.70-6.50) Absolute Lymphs (auto) 2.08 10^3/uL 10^3/uL (1.00-3.00) Absolute Monos (auto) 0.65 10^3/uL 10^3/uL (0.30-0.80) Absolute Eos (auto) 0.30 10^3/uL 10^3/uL (0.03-0.40) Absolute Basos (auto) 0.05 10^3/uL 10^3/uL (0.02-0.10) Absolute Nucleated RBC 0.00 10^3/uL 10^3/uL (0-0.01) Immature Gran % 0.4 % % (0.0-1.1) Immature Gran # 0.04 10^3/uL 10^3/uL (0.00-0.10) Sodium 139 mEq/L mEq/L (135-145) Potassium 3.5 mEq/L mEq/L (3.5-5.2) Chloride 106 mEq/L mEq/L (97-110) Carbon Dioxide 23 mEq/l mEq/l (22-31) Anion Gap 10 mEq/L mEq/L (6-14) BUN 6 mg/dL L mg/dL (7-23) Creatinine 0.8 mg/dL mg/dL (0.7-1.3) Estimated GFR > 60 Glucose 105 mg/dL H mg/dL (70-100) Calcium 9.8 mg/dL mg/dL (8.5-10.4) Medications Given: Discontinued Medications Sodium Chloride (Ns) 1,000 mls @ 0 mls/hr IV EDNOW ONE; Wide Open PRN Reason: Protocol Stop: 07/21/18 23:59 Last Admin: 07/22/18 00:00 Dose: 1,000 mls Sodium Chloride (Ns) 1,000 mls @ 0 mls/hr IV ONCE ONE; Wide Open PRN Reason: Protocol Stop: 07/22/18 00:19 Last Admin: 07/22/18 00:32 Dose: 1,000 mls Ketorolac Tromethamine (Toradol) 15 mg IVP EDNOW ONE Stop: 07/22/18 00:19 Last Admin: 07/22/18 00:32 Dose: 15 mg Ondansetron HCl (Zofran) 4 mg IVP EDNOW ONE Stop: 07/22/18 00:19 Last Admin: 07/22/18 00:32 Dose: 4 mg Departure - Departure Disposition: Home, Routine, Self-Care Clinical Impression: C. difficile colitis, Vomiting, Abdominal pain, Dehydration Condition: Fair Instructions: C Diff (Clostridium Difficile) Infection (ED), Acute Nausea and Vomiting (ED) Additional Instructions: Continue taking her medications as prescribed. Return to the emergency department for worsening pain, uncontrolled nausea vomiting, uncontrolled diarrhea, or any other concerns. Referrals: Shoshana Lazo MD [Primary Care Provider] - As per Instructions
[2018-07-22 00:43] LABS: PLATELET COUNT 237 10^3/uL (150-400)
[2018-07-22 03:22] VITALS: BP 130/75
== END 2018-07-22 03:22 | disposition home or self-care (01) ==
DX: A04.71 Enterocolitis due to Clostridium difficile, recurrent (principal); R11.10 Vomiting, unspecified; E86.0 Dehydration
CPT/HCPCS: 96374; J1885; J2405

== ENCOUNTER 2018-07-24 01:24 | Emergency (ER) | payer OTHER ==
[2018-07-24] MEDS ORDERED: NS 1,000 ML IV ONE ×2 (01:50→02:32)
[2018-07-24 02:00] LABS: PLATELET COUNT 226 10^3/uL (150-400)
[2018-07-24] MEDS ORDERED: KETOROLAC 15 MG/1 ML SDV IVP ONE (02:20)
[2018-07-24] MEDS ORDERED: HYDROmorphONE/DILAUDID 2 MG/ML INJ IVP ONE (02:20)
--- NOTE | 2018-07-24 02:25 | EDPHY ---
H & P Stated Complaint: Cdiff, abdominal pain, n/v Time Seen by Provider: 07/24/18 01:49 HPI/ROS: HPI The patient presents with ongoing abdominal pain which he has had for the last 1 week which is in his right upper and lower quadrants which is worse with movement and at night. He was diagnosed with mesenteric adenitis in C difficile colitis about 1 week ago when he presented to the emergency department. He had a CT scan performed at that time. He was admitted to the hospital for treatment. He was discharged and returned 2 days ago with ongoing symptoms. He now says that most of his nausea, vomiting, diarrhea have abated, however his abdominal pain continues and is just as bad as when he initially came into the hospital. Two days ago he had nausea and vomiting, however today he has been able to eat and drink though somewhat limited in this. His last bowel movement was about 20 hr ago. He has had a low-grade temperature as high as 100.1 F . He has a follow-up appointment with gastroenterology tomorrow. He has been taking Tylenol for the pain with minimal improvement. He took a dose of lorazepam tonight because he was feeling panicked, however this did not help his symptoms. REVIEW OF SYSTEMS 10 systems were reviewed and negative with the exception of the elements mentioned in the history of present illness. PMHx: History of anxiety, possible bipolar disorder, recent diagnosis of C diff colitis Soc Hx: Housed with roommates PHYSICAL General Appearance: Alert, no distress Eyes: Pupils equal and round no pallor or injection ENT, Mouth: Mucous membranes moist Respiratory: There are no retractions, lungs are clear to auscultation Cardiovascular: Regular rate and rhythm Gastrointestinal: Abdomen is soft and tender in the right upper and lower quadrants. no masses, bowel sounds normal Neurological: A&O, moves all extremities Skin: Warm and dry, no rashes Musculoskeletal: Neck is supple non tender Extremities: symmetrical, full range of motion Psychiatric: Patient is oriented X 3, there is no agitation Source: Patient Exam Limitations: No limitations - Personal History Current Tetanus/Diphtheria Vaccine: Yes Current Tetanus Diphtheria and Acellular Pertussis (TDAP): Yes - Medical/Surgical History Hx Asthma: Yes Hx Chronic Respiratory Disease: No Hx Diabetes: No Hx Cardiac Disease: No Hx Renal Disease: No Hx Cirrhosis: No Hx Alcoholism: No Hx HIV/AIDS: No Hx Splenectomy or Spleen Trauma: No Other PMH: asthma, bipolar?,depression, OCD, C diff - Social History Smoking Status: Current every day smoker Constitutional: Initial Vital Signs Temperature (C) 36.6 C 07/24/18 01:25 Heart Rate 101 H 07/24/18 01:25 Respiratory Rate 18 07/24/18 01:25 Blood Pressure 121/76 H 07/24/18 01:25 O2 Sat (%) 96 07/24/18 01:25 O2 Delivery Mode Room Air Allergies/Adverse Reactions: cefixime [From Suprax] Allergy (Verified 07/24/18 01:25) cefuroxime axetil [From Ceftin] Allergy (Verified 07/24/18 01:25) clarithromycin [From Biaxin] Allergy (Verified 07/24/18 01:25) erythromycin base [Erythromycin Base] Allergy (Verified 07/24/18 01:25) montelukast sodium [From Singulair] Allergy (Verified 07/24/18 01:25) peanut Allergy (Verified 07/24/18 01:25) Penicillins Allergy (Verified 07/24/18 01:25) tree nut Allergy (Verified 07/24/18 01:25) Home Medications: Medication Instructions Recorded LORazepam [Ativan] 0.5 mg PO BID PRN 09/07/14 Albuterol [Ventolin Hfa Inhaler] 1 - 2 puffs IH Q4 PRN 07/18/18 OLANZapine [Zyprexa] 10 mg PO DAILY PRN 07/18/18 OXcarbazepine [Trileptal 300mg (*)] 900 mg PO HS 07/18/18 Ondansetron Odt [Zofran Odt 4 mg 4 mg PO Q4HRS PRN #21 tab 07/18/18 (*)] Propranolol HCl [Inderal 20mg (*)] 20 mg PO DAILY 07/18/18 Propranolol HCl [Inderal 20mg (*)] 30 mg PO HS 07/18/18 QUEtiapine FUMARATE [Seroquel 900 mg PO HS 07/18/18 300mg (*)] Vancomycin [Vancomycin (*)] 125 mg PO Q6 #36 cap 07/18/18 lamOTRIGine [Lamotrigine] 300 mg PO DAILY 07/18/18 Medical Decision Making Differential Diagnosis: 28-year-old male with recent diagnosis of C difficile colitis, mesenteric adenitis, currently on oral vancomycin as an outpatient with about 1 week of symptoms presents from home with ongoing right-sided abdominal pain. Nausea, vomiting, diarrhea have improved, though pain continues. He does have tenderness though his abdomen is soft. Plan for basic labs, IV fluids, medication for pain. The patient's labs were unremarkable. He was given Dilaudid and Toradol with complete resolution in his pain and felt much better. Because he has had several ER visits, I have offered him admission to the hospital for pain management and ongoing care of his illness. He says he would actually like to go home. He has a GI appointment later today. He believes that some anxiety contributed to his presentation to the emergency department. I will give him a pill pack of [place] so that he has some medication to take if he has more pain. He is happy with this plan. Differential diagnosis includes C difficile colitis, mesenteric adenitis, less likely biliary colic. - Data Points Laboratory Results: Laboratory Results 07/24/18 01:50 07/24/18 01:50 07/24/18 07/24/18 01:50 01:50 WBC 7.77 10^3/uL 10^3/uL (3.80-9.50) RBC 4.30 10^6/uL L 10^6/uL (4.40-6.38) Hgb 13.8 g/dL g/dL (13.7-17.5) Hct 38.2 % L % (40.0-51.0) MCV 88.8 fL fL (81.5-99.8) MCH 32.1 pg pg (27.9-34.1) MCHC 36.1 g/dL g/dL (32.4-36.7) RDW 11.9 % % (11.5-15.2) Plt Count 226 10^3/uL 10^3/uL (150-400) MPV 9.5 fL fL (8.7-11.7) Neut % (Auto) 55.5 % % (39.3-74.2) Lymph % (Auto) 31.3 % % (15.0-45.0) [place] % (Auto) 8.8 % % (4.5-13.0) Eos % (Auto) 3.5 % % (0.6-7.6) Baso % (Auto) 0.8 % % (0.3-1.7) Nucleat RBC Rel Count 0.0 % % (0.0-0.2) Absolute Neuts (auto) 4.32 10^3/uL 10^3/uL (1.70-6.50) Absolute Lymphs (auto) 2.43 10^3/uL 10^3/uL (1.00-3.00) Absolute Monos (auto) 0.68 10^3/uL 10^3/uL (0.30-0.80) Absolute Eos (auto) 0.27 10^3/uL 10^3/uL (0.03-0.40) Absolute Basos (auto) 0.06 10^3/uL 10^3/uL (0.02-0.10) Absolute Nucleated RBC 0.00 10^3/uL 10^3/uL (0-0.01) Immature Gran % 0.1 % % (0.0-1.1) Immature Gran # 0.01 10^3/uL 10^3/uL (0.00-0.10) Sodium 138 mEq/L mEq/L (135-145) Potassium 3.4 mEq/L L mEq/L (3.5-5.2) Chloride 106 mEq/L mEq/L (97-110) Carbon Dioxide 22 mEq/l mEq/l (22-31) Anion Gap 10 mEq/L mEq/L (6-14) BUN 5 mg/dL L mg/dL (7-23) Creatinine 0.8 mg/dL mg/dL (0.7-1.3) Estimated GFR > 60 Glucose 125 mg/dL H mg/dL (70-100) Calcium 9.5 mg/dL mg/dL (8.5-10.4) Total Bilirubin 0.5 mg/dL mg/dL (0.1-1.4) AST 16 IU/L L IU/L (17-59) ALT 32 IU/L IU/L (21-72) Alkaline Phosphatase 74 IU/L IU/L (38-126) Total Protein 6.9 g/dL g/dL (6.3-8.2) Albumin 4.4 g/dL g/dL (3.5-5.0) Medications Given: Discontinued Medications Hydrocodone Bitart/Acetaminophen ([place] 5/325mg Prepack#6) 1 btl TAKEHOME EDNOW ONE Stop: 07/24/18 03:58 Last Admin: 07/24/18 04:03 Dose: 1 btl Hydromorphone HCl (Dilaudid) 0.5 mg IVP EDNOW ONE Stop: 07/24/18 02:21 Last Admin: 07/24/18 02:28 Dose: 0.5 mg Sodium Chloride (Ns) 1,000 mls @ 0 mls/hr IV ONCE ONE; Wide Open PRN Reason: Protocol Stop: 07/24/18 02:33 Last Admin: 07/24/18 02:34 Dose: 1,000 mls Sodium Chloride (Ns) 1,000 mls @ 0 mls/hr IV ONCE ONE; Wide Open PRN Reason: Protocol Stop: 07/24/18 01:51 Last Admin: 07/24/18 01:50 Dose: 1,000 mls Ketorolac Tromethamine (Toradol) 15 mg IVP EDNOW ONE Stop: 07/24/18 02:21 Last Admin: 07/24/18 02:28 Dose: 15 mg Departure - Departure Disposition: Home, Routine, Self-Care Clinical Impression: Clostridium difficile colitis Abdominal pain Qualifiers: Abdominal location: right upper quadrant Qualified Code(s): R10.11 - Right upper quadrant pain Condition: Good Instructions: Hydrocodone/Acetaminophen (By mouth), C Diff (Clostridium Difficile) Infection (ED) Additional Instructions: Please take the [place] 1-2 tabs every 6 hr as needed for pain. You should not take this with acetaminophen. Return to the emergency department if your worse in any way. Referrals: Shoshana Lazo MD [Primary Care Provider] - As per Instructions
[2018-07-24] MEDS ORDERED: HYDROCOD/APAP 5/325 PREPACK#6 BTL TAKEHOME ONE (03:57)
[2018-07-24 04:05] VITALS: BP 121/74
== END 2018-07-24 04:05 | disposition home or self-care (01) ==
DX: A04.71 Enterocolitis due to Clostridium difficile, recurrent (principal); R10.11 Right upper quadrant pain; F41.9 Anxiety disorder, unspecified
CPT/HCPCS: 96374; J1170; J1885

== ENCOUNTER 2018-07-24 22:37 | Inpatient (IN) | payer OTHER ==
[2018-07-24] MEDS ORDERED: HYDROmorphONE/DILAUDID 1 MG/ML INJ ONE (22:54)
[2018-07-24] MEDS ORDERED: ONDANSETRON 4 MG/2 ML VIAL ONE (22:54)
[2018-07-24] MEDS ORDERED: ONDANSETRON 4 MG/2 ML VIAL IVP ONE (22:59)
[2018-07-24] MEDS ORDERED: KETOROLAC 15 MG/1 ML SDV IVP ONE (22:59)
[2018-07-24] MEDS ORDERED: NS 1,000 ML IV ONE (22:59)
[2018-07-24] MEDS ORDERED: HYDROmorphONE/DILAUDID 2 MG/ML INJ IVP ONE (22:59)
--- NOTE | 2018-07-24 23:04 | EDPHY ---
H & P Stated Complaint: N/V/D, abd pain, dx with c.diff Time Seen by Provider: 07/24/18 22:46 HPI/ROS: HPI The patient presents with nausea, vomiting, diarrhea, abdominal pain which has been present intermittently for about the last 1 week. He was admitted to the hospital about 1 week ago for several days for nausea, vomiting, diarrhea was found to have CT scan suggestive of possible mesenteric adenitis, also was positive for C diff. He was started on oral vancomycin and discharged home. He return to the emergency department several days later with ongoing symptoms though improved with treatment here. He was in the emergency department yesterday as well for similar symptoms and again improved with treatment. He went home, however 2 hr after he had been home he developed nausea, vomiting, abdominal pain once again. He went to see [facility] today for a clinic visit. He had persistent abdominal pain, was only able to tolerate small sips of water, otherwise had vomiting, and had about 1 hr or diarrhea. He tried taking Zofran, [place] tonight for his symptoms without any improvement so returns to the emergency department. REVIEW OF SYSTEMS 10 systems were reviewed and negative with the exception of the elements mentioned in the history of present illness. PMHx: Recent positive testing for C diff based on stool PCR, currently on oral vancomycin Soc Hx: Housed with roommates, uses marijuana PHYSICAL General Appearance: Alert, actively vomiting Eyes: Pupils equal and round no pallor or injection ENT, Mouth: Mucous membranes dry Respiratory: There are no retractions, lungs are clear to auscultation Cardiovascular: Regular rate and rhythm Gastrointestinal: Abdomen is soft and tender in the right upper and right lower quadrants, no masses, bowel sounds normal Neurological: A&O, moves all extremities Skin: Warm and dry, no rashes Musculoskeletal: Neck is supple non tender Extremities: symmetrical, full range of motion Psychiatric: Patient is oriented X 3, there is no agitation Source: Patient Exam Limitations: No limitations - Personal History Current Tetanus/Diphtheria Vaccine: Yes Tetanus Vaccine Date: 2009 - Medical/Surgical History Hx Asthma: Yes Hx Chronic Respiratory Disease: No Hx Diabetes: No Hx Cardiac Disease: No Hx Renal Disease: No Hx Cirrhosis: No Hx Alcoholism: No Hx HIV/AIDS: No Hx Splenectomy or Spleen Trauma: No Other PMH: asthma, bipolar?,depression, OCD, C diff - Social History Smoking Status: Current every day smoker Constitutional: Initial Vital Signs Temperature (C) 36.9 C 07/24/18 22:39 Heart Rate 79 07/24/18 22:39 Respiratory Rate 18 07/24/18 22:39 Blood Pressure 144/95 H 07/24/18 22:39 O2 Sat (%) 97 07/24/18 22:39 O2 Delivery Mode Room Air Allergies/Adverse Reactions: cefixime [From Suprax] Allergy (Verified 07/24/18 22:42) cefuroxime axetil [From Ceftin] Allergy (Verified 07/24/18 22:42) clarithromycin [From Biaxin] Allergy (Verified 07/24/18 22:42) erythromycin base [Erythromycin Base] Allergy (Verified 07/24/18 22:42) montelukast sodium [From Singulair] Allergy (Verified 07/24/18 22:42) peanut Allergy (Verified 07/24/18 22:42) Penicillins Allergy (Verified 07/24/18 22:42) tree nut Allergy (Verified 07/24/18 22:42) Home Medications: Medication Instructions Recorded LORazepam [Ativan] 0.5 mg PO BID PRN 09/07/14 Albuterol [Ventolin Hfa Inhaler] 1 - 2 puffs IH Q4 PRN 07/18/18 OLANZapine [Zyprexa] 10 mg PO DAILY PRN 07/18/18 OXcarbazepine [Trileptal 300mg (*)] 900 mg PO HS 07/18/18 Ondansetron Odt [Zofran Odt 4 mg 4 mg PO Q4HRS PRN #21 tab 07/18/18 (*)] Propranolol HCl [Inderal 20mg (*)] 20 mg PO DAILY 07/18/18 Propranolol HCl [Inderal 20mg (*)] 30 mg PO HS 07/18/18 QUEtiapine FUMARATE [Seroquel 900 mg PO HS 07/18/18 300mg (*)] Vancomycin [Vancomycin (*)] 125 mg PO Q6 #36 cap 07/18/18 lamOTRIGine [Lamotrigine] 300 mg PO DAILY 07/18/18 Medical Decision Making Differential Diagnosis: 28-year-old male with recent diagnosis of C diff, mesenteric adenitis, who re- presented with ongoing abdominal pain associated with nausea, vomiting, diarrhea. Here, he is started on IV fluids and medication for his symptoms. Labs are unremarkable and fairly similar to yesterday. CT scan was performed given concern for ongoing abdominal pain. This demonstrated mild colitis only. Given his ongoing symptoms and the severity of his pain, multiple ED visits, we will admit him to the hospital for further care. I have discussed the case with Dr. Dennis. Differential diagnoses considered include C difficile colitis, mesenteric adenitis, appendicitis, cholecystitis. - Data Points Laboratory Results: Laboratory Results 07/24/18 23:05 07/24/18 23:05 07/24/18 07/24/18 23:05 23:05 WBC 8.42 10^3/uL 10^3/uL (3.80-9.50) RBC 4.47 10^6/uL 10^6/uL (4.40-6.38) Hgb 14.2 g/dL g/dL (13.7-17.5) Hct 40.5 % % (40.0-51.0) MCV 90.6 fL fL (81.5-99.8) MCH 31.8 pg pg (27.9-34.1) MCHC 35.1 g/dL g/dL (32.4-36.7) RDW 12.2 % % (11.5-15.2) Plt Count 256 10^3/uL 10^3/uL (150-400) MPV 9.5 fL fL (8.7-11.7) Neut % (Auto) 61.3 % % (39.3-74.2) Lymph % (Auto) 27.9 % % (15.0-45.0) [place] % (Auto) 7.2 % % (4.5-13.0) Eos % (Auto) 2.6 % % (0.6-7.6) Baso % (Auto) 0.6 % % (0.3-1.7) Nucleat RBC Rel Count 0.0 % % (0.0-0.2) Absolute Neuts (auto) 5.16 10^3/uL 10^3/uL (1.70-6.50) Absolute Lymphs (auto) 2.35 10^3/uL 10^3/uL (1.00-3.00) Absolute Monos (auto) 0.61 10^3/uL 10^3/uL (0.30-0.80) Absolute Eos (auto) 0.22 10^3/uL 10^3/uL (0.03-0.40) Absolute Basos (auto) 0.05 10^3/uL 10^3/uL (0.02-0.10) Absolute Nucleated RBC 0.00 10^3/uL 10^3/uL (0-0.01) Immature Gran % 0.4 % % (0.0-1.1) Immature Gran # 0.03 10^3/uL 10^3/uL (0.00-0.10) Sodium 139 mEq/L mEq/L (135-145) Potassium 3.4 mEq/L L mEq/L (3.5-5.2) Chloride 102 mEq/L mEq/L (97-110) Carbon Dioxide 24 mEq/l mEq/l (22-31) Anion Gap 13 mEq/L mEq/L (6-14) BUN 6 mg/dL L mg/dL (7-23) Creatinine 0.9 mg/dL mg/dL (0.7-1.3) Estimated GFR > 60 Glucose 91 mg/dL mg/dL (70-100) Calcium 10.0 mg/dL mg/dL (8.5-10.4) Total Bilirubin 0.5 mg/dL mg/dL (0.1-1.4) AST 18 IU/L IU/L (17-59) ALT 32 IU/L IU/L (21-72) Alkaline Phosphatase 82 IU/L IU/L (38-126) Total Protein 7.8 g/dL g/dL (6.3-8.2) Albumin 4.9 g/dL g/dL (3.5-5.0) Medications Given: Discontinued Medications Hydromorphone HCl (Dilaudid) 0.5 mg IVP EDNOW ONE Stop: 07/24/18 23:00 Last Admin: 07/24/18 23:07 Dose: 0.5 mg Sodium Chloride (Ns) 1,000 mls @ 0 mls/hr IV EDNOW ONE; Wide Open PRN Reason: Protocol Stop: 07/24/18 23:00 Last Admin: 07/24/18 23:03 Dose: 1,000 mls Ketorolac Tromethamine (Toradol) 15 mg IVP EDNOW ONE Stop: 07/24/18 23:00 Last Admin: 07/24/18 23:06 Dose: 15 mg Ondansetron HCl (Zofran) 4 mg IVP EDNOW ONE Stop: 07/24/18 23:00 Last Admin: 07/24/18 23:07 Dose: 4 mg Departure - Departure Disposition: [facility] Acute Clinical Impression: Clostridium difficile colitis Condition: Fair
[2018-07-24 23:17] LABS: PLATELET COUNT 256 10^3/uL (150-400)
[2018-07-24] MEDS ORDERED: IOPAMIDOL (ISOVUE-300) 100 ML BTL ONE (23:50)
--- NOTE | 2018-07-25 01:03 | PDGENHP ---
History and Physical - Chief Complaint Abdominal pain - History of Present Illness 28 yo M w/ hx of BPD and recent diagnosis of C. Difficile diarrhea presents with persistent abdominal pain and diarrhea. The patient was admitted 07/18 for abdominal pain and diarrhea and diagnosed with C. Difficile diarrhea. CT imaging at that time was reassuring. He was discharged the next day with oral vancomycin. He has been compliant with this medication but despite this his symptoms have continued. The frequency of his diarrhea has improved from 10+ BMs daily to 3-4 BMs daily but he continues to have severe abdominal pain. His pain is diffuse but currently worst in the RUQ. His abdomen is soft and overall reassuring. His vital signs and laboratory work-up are reassuring as well. He is being admitted for symptom management and further work-up. Case discussed with ED physician Dr. Birch; records reviewed and summarized above. History Information - Allergies/Home Medication List Allergies/Adverse Reactions: cefixime [From Suprax] Allergy (Verified 07/24/18 22:42) cefuroxime axetil [From Ceftin] Allergy (Verified 07/24/18 22:42) clarithromycin [From Biaxin] Allergy (Verified 07/24/18 22:42) erythromycin base [Erythromycin Base] Allergy (Verified 07/24/18 22:42) montelukast sodium [From Singulair] Allergy (Verified 07/24/18 22:42) peanut Allergy (Verified 07/24/18 22:42) Penicillins Allergy (Verified 07/24/18 22:42) tree nut Allergy (Verified 07/24/18 22:42) Home Medications: LORazepam [Ativan] 0.5 mg PO BID PRN 09/07/14 [Last Taken Unknown] Albuterol [Ventolin Hfa Inhaler] 1 - 2 puffs IH Q4 PRN 07/18/18 [Last Taken Unknown] OLANZapine [Zyprexa] 10 mg PO DAILY PRN 07/18/18 [Last Taken Unknown] OXcarbazepine [Trileptal 300mg (*)] 900 mg PO HS 07/18/18 [Last Taken 07/17/18] Propranolol HCl [Inderal 20mg (*)] 20 mg PO DAILY 07/18/18 [Last Taken 07/17/18] Propranolol HCl [Inderal 20mg (*)] 30 mg PO HS 07/18/18 [Last Taken 07/17/18] QUEtiapine FUMARATE [Seroquel 300mg (*)] 900 mg PO HS 07/18/18 [Last Taken 07/17] lamOTRIGine [Lamotrigine] 300 mg PO DAILY 07/18/18 [Last Taken 07/17/18] I have personally reviewed and updated: family history, medical history - Past Medical History Additional medical history: bipolar disorder. OCD. hx etoh with history of remission, now pt with daily use 1 drink/day. asthma - Surgical History Additional surgical history: Ecru teeth removal - Family History Additional family history: f- HTN, CAD, etoh/substance abuse. 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 He Lives alone. COR - FULL. Review of Systems Review of Systems: ROS: 10pt was reviewed & negative except for what was stated in HPI & below Physical Exam Physical Exam: Temp Pulse Resp BP Pulse Ox 36.6 C 60 16 124/77 H 96 07/25/18 00:57 07/25/18 00:57 07/25/18 00:57 07/25/18 00:57 07/25/18 00:57 Constitutional: appears nourished, uncomfortable Eyes: PERRL, EOMI Ears, Nose, Mouth, Throat: moist mucous membranes, no oral mucosal ulcers Cardiovascular: regular rate and rhythym, no murmur, rub, or gallop Respiratory: no respiratory distress, clear to auscultation Gastrointestinal: normoactive bowel sounds, tenderness (Diffuse, worst at RUQ), No guarding, No rebound, No distension Skin: warm, normal color Musculoskeletal: full muscle strength, no muscle tenderness Neurologic: AAOx3, CN II-XII Intact Psychiatric: interacting appropriately, not anxious Lab Data & Imaging Review 07/24/18 23:05 07/24/18 23:05 WBC 8.42 10^3/uL (3.80-9.50) 07/24/18 23:05 RBC 4.47 10^6/uL (4.40-6.38) 07/24/18 23:05 Hgb 14.2 g/dL (13.7-17.5) 07/24/18 23:05 Hct 40.5 % (40.0-51.0) 07/24/18 23:05 MCV 90.6 fL (81.5-99.8) 07/24/18 23:05 MCH 31.8 pg (27.9-34.1) 07/24/18 23:05 MCHC 35.1 g/dL (32.4-36.7) 07/24/18 23:05 RDW 12.2 % (11.5-15.2) 07/24/18 23:05 Plt Count 256 10^3/uL (150-400) 07/24/18 23:05 MPV 9.5 fL (8.7-11.7) 07/24/18 23:05 Neut % (Auto) 61.3 % (39.3-74.2) 07/24/18 23:05 Lymph % (Auto) 27.9 % (15.0-45.0) 07/24/18 23:05 [place] % (Auto) 7.2 % (4.5-13.0) 07/24/18 23:05 Eos % (Auto) 2.6 % (0.6-7.6) 07/24/18 23:05 Baso % (Auto) 0.6 % (0.3-1.7) 07/24/18 23:05 Nucleat RBC Rel Count 0.0 % (0.0-0.2) 07/24/18 23:05 Absolute Neuts (auto) 5.16 10^3/uL (1.70-6.50) 07/24/18 23:05 Absolute Lymphs (auto) 2.35 10^3/uL (1.00-3.00) 07/24/18 23:05 Absolute Monos (auto) 0.61 10^3/uL (0.30-0.80) 07/24/18 23:05 Absolute Eos (auto) 0.22 10^3/uL (0.03-0.40) 07/24/18 23:05 Absolute Basos (auto) 0.05 10^3/uL (0.02-0.10) 07/24/18 23:05 Absolute Nucleated RBC 0.00 10^3/uL (0-0.01) 07/24/18 23:05 Immature Gran % 0.4 % (0.0-1.1) 07/24/18 23:05 Immature Gran # 0.03 10^3/uL (0.00-0.10) 07/24/18 23:05 Sodium 139 mEq/L (135-145) 07/24/18 23:05 Potassium 3.4 mEq/L (3.5-5.2) L 07/24/18 23:05 Chloride 102 mEq/L (97-110) 07/24/18 23:05 Carbon Dioxide 24 mEq/l (22-31) 07/24/18 23:05 Anion Gap 13 mEq/L (6-14) 07/24/18 23:05 BUN 6 mg/dL (7-23) L 07/24/18 23:05 Creatinine 0.9 mg/dL (0.7-1.3) 07/24/18 23:05 Estimated GFR > 60 07/24/18 23:05 Glucose 91 mg/dL (70-100) 07/24/18 23:05 Calcium 10.0 mg/dL (8.5-10.4) 07/24/18 23:05 Total Bilirubin 0.5 mg/dL (0.1-1.4) 07/24/18 23:05 AST 18 IU/L (17-59) 07/24/18 23:05 ALT 32 IU/L (21-72) 07/24/18 23:05 Alkaline Phosphatase 82 IU/L (38-126) 07/24/18 23:05 Total Protein 7.8 g/dL (6.3-8.2) 07/24/18 23:05 Albumin 4.9 g/dL (3.5-5.0) 07/24/18 23:05 Assessment & Plan Assessment: 28 yo M w/ hx of BPD and recent diagnosis of C. Difficile diarrhea presents with persistent abdominal pain and diarrhea. Plan: 1. C. Difficile diarrhea - It is unclear why patient continues to have nausea, abdominal pain, and diarrhea after 5 days of appropriate treatment. His CT imaging was reassuring during last admission. His VS, abdominal exam, and laboratory work-up are reassuring today. - Admit for observation - Will repeat CT scan to rule out complications of colitis - Continue oral vancomycin - mIVF, pain control, anti-emetics PRN 2. Bipolar disorder - He has a normal mood and affect during my evaluation. - Continue home medications pending reconciliation 3. Hypokalemia - Related to vomiting and diarrhea. - Replete PRN Diet - Clears, mIVF, ADAT Code - Full Ppx - Low risk, ambulate TID Dispo - Admit under observation status
[2018-07-25] MEDS ORDERED: VANCOMYCIN 125 MG/2.5 ML UDL PO ONE (01:06)
[2018-07-25] MEDS ORDERED: HYDROmorphONE/DILAUDID 1 MG/ML INJ IVP PRN (01:07)
[2018-07-25] MEDS: ONDANSETRON 4 MG/2 ML VIAL IVP PRN ×2 (01:45→11:18)
[2018-07-25] MEDS: NS 1,000 ML IV SCH ×2 (01:48→11:19)
[2018-07-25] MEDS ORDERED: QUEtiapine FUMARATE 300 MG TAB PO ONE (02:24)
[2018-07-25] MEDS ORDERED: PROPRANOLOL HCL 20 MG TAB PO ONE (02:24)
[2018-07-25] MEDS ORDERED: OXcarbazepine 300 MG TAB PO ONE (02:26)
[2018-07-25] MEDS: PROMETHAZINE HCL 25 MG/ML INJ IVP PRN ×2 (03:53→22:05)
[2018-07-25] MEDS ORDERED: LORazepam 0.5 MG TAB PO ONE (04:01)
[2018-07-25] MEDS ORDERED: LIDOCAINE 2% VISCOUS 15 ML UDCUP PO ONE (04:01)
[2018-07-25] MEDS ORDERED: HYOSCYAMINE SULFATE 0.125 MG TAB PO ONE (04:01)
[2018-07-25] MEDS ORDERED: MAG HYDROX/AL HYDROX/SIMETH 30 ML UDCUP PO ONE (04:01)
[2018-07-25] MEDS: VANCOMYCIN 125 MG/2.5 ML UDL PO SCH ×4 (05:26→20:29)
[2018-07-25 05:36] LABS: PLATELET COUNT 202 10^3/uL (150-400)
--- NOTE | 2018-07-25 08:33 | HOSPPROG ---
Hospitalist Progress Note Assessment/Plan: 28 yo M w/ hx of BPD and recent diagnosis of C. Difficile diarrhea presents with persistent abdominal pain and diarrhea. First encounter, chart reviewed. *abdominal pain and diarrhea -reviewed results of repeat CT-show small amount of free pelvic fluid -curb sided surgery and they did not see any free air on the CT scan -patient said pain is ongoing, comes on at night and hasn't resolved since his last dc (he was dc approximately a week ago) -saw a manufacturing team leader yesterday and is to have an upper endoscopy eventually , but pain persisted and he came here -have a page into GI to see *C diff colitis -cont oral vanco *bipolar disorder -stable -resumed home meds *hypokalemia *hyponatremia -likely due to hypovolemia *plan: spoke w Dr Leal and he will see Nate today Subjective: Nate isn't having pain when I evaluated him (comes on at night) Objective: Vital Signs Temp Pulse Resp BP Pulse Ox 36.4 C 62 16 120/67 97 07/25/18 07:33 07/25/18 07:33 07/25/18 07:33 07/25/18 07:33 07/25/18 07:33 Laboratory Results 07/25/18 05:20 07/25/18 05:20 07/24/18 07/25/18 07/26/18 05:59 05:59 05:59 Intake Total 1000 Balance 1000 - Physical Exam Constitutional: no apparent distress, appears nourished Eyes: PERRL Ears, Nose, Mouth, Throat: hearing normal Cardiovascular: regular rate and rhythym Respiratory: no respiratory distress Gastrointestinal: normoactive bowel sounds, tenderness (slight in ruq an rlq) Skin: warm Musculoskeletal: full muscle strength Neurologic: AAOx3 Psychiatric: interacting appropriately ICD10 Worksheet Patient Problems: Problems Problem Status Onset Clostridium difficile colitis Acute Abdominal pain Acute
[2018-07-25] MEDS ORDERED: LORazepam 1 MG TAB PO PRN (09:11)
[2018-07-25] MEDS ORDERED: ALPRAZolam 0.25 MG TAB PO PRN (09:11)
[2018-07-25] MEDS ORDERED: ALBUTEROL INH PREPACK MDI TAKEHOME PRN (09:11)
[2018-07-25] MEDS ORDERED: ALBUTEROL 60 PUFFS/8 GM MDI IH PRN (09:19)
[2018-07-25] MEDS ORDERED: PROTOCOL POTASSIUM 1 DOSE MISC PRN (09:31)
[2018-07-25] MEDS: POTASSIUM CL 10 MEQ TAB PO ONE ×2 (11:18→11:42)
--- NOTE | 2018-07-25 11:29 | ASMTCMCOM ---
CM Note CM Note Notes: Reviewed chart and last admission. Pt was dc'd on 07/19 on po vanco for cdiff. Pt presents to ER c/o continued abd pain and loose bm. He has been compliant with his medication. Gastroenterology to consult today. Pt lives alone and works, anticipate he will dc home when medically stable. CM available for any changes. DC Plan: Independent Date Signed: 07/25/2018 11:28 AM Electronically Signed By:Sherri Colon RN
[2018-07-25] MEDS: POTASSIUM Cl (KCl) 100 ML IV SCH ×3 (12:24→17:55)
[2018-07-25] MEDS ORDERED: LR 1,000 ML IV ONE (13:02)
--- NOTE | 2018-07-25 13:22 | GCON ---
[f rep st] CONSULTATION DATE OF CONSULTATION: 07/25/2018 REFERRING PHYSICIAN: Asya Suarez NP HISTORY OF PRESENT ILLNESS: Asya Suarez, thank you very kindly for asking me to evaluate this kathie fowler in consultation for a chief complaint of abdominal pain. He is a pleasant 28-year-old gentlema n with bipolar disorder, who had been in the hospital initially on July 18, discharged, and then read mitted for abdominal pain. He describes epigastric, periumbilical, and predominantly today right-yazan ed abdominal pain that is generally a dull ache through the day, but escalates towards the evening of becomes quite unbearable. It is a stabbing discomfort by the evening, and has been associated with repeated episodes of nausea and vomiting. Initially on July 18 when this started, he felt somewhat c onstipated, but ultimately developed diarrhea and was found on the previous admission to have Clostri dium difficile colitis, which has been treated with vancomycin. While his diarrhea is better, his ab dominal symptoms are not. He has no risk factors for Clostridium difficile. Specifically, no sick c ontacts or recent antibiotic use and no previous history of bowel disease. An abdomen and pelvis CT on July 24 revealed some very small amount of free fluid in the pelvis, and a little bit of equivoca l colitis in the transverse colon and sigmoid colon. He has been feeling hot and cold with some chil ls, but denies overt fever. He has been taking scheduled Zofran, which seems to be helping, but he h as not been able to really eat or drink. His admission laboratories, including LFTs and a CBC are fa irly unremarkable. I am asked to assist with further evaluation and management. PAST MEDICAL HISTORY: Significant for: 1. Bipolar disorder. 2. Anxiety. 3. History of alcohol abuse, in remission. 4. Reactive airways disease. 5. Recent Clostridium difficile colitis. SURGICAL HISTORY: Dora tooth extraction. FAMILY HISTORY: Significant for alcoholism and hypertension. SOCIAL HISTORY: The patient smokes. He drinks alcohol, about 1 drink per day. 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 REVIEW OF SYSTEMS: Otherwise negative, other than the history of present illness. MEDICATIONS ON ADMISSION: Include Ativan, albuterol, Zyprexa, Trileptal, Inderal, Seroquel, and lamo trigine. ALLERGIES: Cefuroxime, clarithromycin, erythromycin, Singulair, peanuts, penicillin, and tree nuts. PHYSICAL EXAM: VITAL SIGNS: Blood pressure 135/87, heart rate 60, respirations 16, oxygenation is 9 6% on room air, and temperature is 36.6. GENERAL: A healthy and comfortable-appearing male, alert a nd in no acute distress. HEENT: Normocephalic, atraumatic. NECK: Supple. PULMONARY: Clear to au scultation bilaterally. CARDIOVASCULAR: Regular rate and rhythm without murmur, rub, or gallop. GI : The abdomen is soft and scaphoid. There is mild tenderness to palpation in the right lower and ri ght upper quadrants. Negative Novak sign. No ascites. No bruit. No organomegaly or palpable mass . No rebound or guarding. MUSCULOSKELETAL: Normal gait and station without joint deformity, swelli ng, or warmth. SKIN: Tattooed without jaundice. NEUROLOGICAL: Alert to person, place, and time. Speech and affect seem normal. He is a bit anxious. Motor is nonfocal. DATABASE: White blood count is 7.0, hematocrit 36.8, and platelets are 202. Sodium 130, potassium 3 .2, chloride 104, bicarbonate 23, BUN 5, and creatinine 0.8. AST 14, ALT 23, alkaline phosphatase 62 , total protein 6.3, and albumin 3.9. IMAGING: Includes a CT scan of the abdomen and pelvis on July 24, 2018, performed with IV contrast. The liver and spleen are normal. There is no bile duct dilatation. The gallbladder and pancreas a re unremarkable. The mesentery is normal without inflammatory change. There is no dilatation to the small bowel or colon. There is some mild equivocal thickening to the transverse and sigmoid colon w ithout evidence of colonic chaim-inflammatory change. There is no adenopathy. IMPRESSION: 1. Right upper quadrant and right lower quadrant pain. 2. Nausea with vomiting. 3. CT scan showing very mild thickening to the transverse and sigmoid colon. 4. Clostridium difficile colitis initially diagnosed on July 18 and now being treated with vancomyci n. RECOMMENDATIONS: 1. EGD. 2. If this is unremarkable, we will consider colonoscopy for evaluation of his abdominal pain, recen t diarrhea, colonic thickening on his recent CT scan, and recent C difficile colitis to help diagnost icaclaudiay. 3. N.p.o. 4. Further recommendations to follow. /[id number]/MODL
[2018-07-25] MEDS ORDERED: DEXAMETHASONE 4 MG/ML VIAL ONE (13:26)
[2018-07-25] MEDS ORDERED: fentaNYL 100 MCG/2 ML INJ ONE ×2 (13:26→14:40)
[2018-07-25] MEDS ORDERED: MIDAZOLAM 2 MG/2 ML VIAL ONE (13:26)
[2018-07-25] MEDS ORDERED: ONDANSETRON 4 MG/2 ML VIAL ONE (13:26)
[2018-07-25] MEDS ORDERED: PROPOFOL/EMULSION 500 MG/50 ML BOTTLE IV ONE (13:26)
--- NOTE | 2018-07-25 13:34 | PDANEPAE ---
ANE History of Present Illness c. diff without improvement on outpatient medication, here for colonoscopy ANE Past Medical History - Cardiovascular History Hx Hypertension: No Hx Arrhythmias: No Hx Chest Pain: No Hx Coronary Artery / Peripheral Vascular Disease: No Hx CHF / Valvular Disease: No Hx Palpitations: No - Pulmonary History Hx COPD: No Hx Asthma/Reactive Airway Disease: No Hx Recent Upper Respiratory Infection: No Hx Oxygen in Use at Home: No Hx Sleep Apnea: No Sleep Apnea Screening Result - Last Documented: Positive Pulmonary History Comment: every day smoker of tobacco products - Neurologic History Hx Cerebrovascular Accident: No Hx Seizures: No Hx Dementia: No - Endocrine History Hx Diabetes: No Hypothyroid: No Hyperthyroid: No - Renal History Hx Renal Disorders: No - Liver History Hx Hepatic Disorders: No - Neurological & Psychiatric Hx Hx Neurological and Psychiatric Disorders: Yes Neurological / Psychiatric History Comment: BPD on medication with appropriate affect during hospitalization - Cancer History Hx Cancer: No - Congenital Disorder History Hx Congenital Disorders: No - GI History GERD: no Hx Gastrointestinal Disorders: Yes Gastrointestinal History Comment: Here for unresolved CDiff and continued vomiting and diarrhea - Chronic Pain History Chronic Pain: No ANE Review of Systems Review of Systems: ANE Patient History - Allergies Allergies/Adverse Reactions: cefixime [From Suprax] Allergy (Verified 07/24/18 22:42) cefuroxime axetil [From Ceftin] Allergy (Verified 07/24/18 22:42) clarithromycin [From Biaxin] Allergy (Verified 07/24/18 22:42) erythromycin base [Erythromycin Base] Allergy (Verified 07/24/18 22:42) montelukast sodium [From Singulair] Allergy (Verified 07/24/18 22:42) peanut Allergy (Verified 07/24/18 22:42) Penicillins Allergy (Verified 07/24/18 22:42) tree nut Allergy (Verified 07/24/18 22:42) - Home Medications Home Medications: LORazepam [Ativan] 0.5 mg PO BID PRN 09/07/14 [Last Taken 07/24/18] Albuterol [Ventolin Hfa Inhaler] 1 - 2 puffs IH Q4 PRN 07/18/18 [Last Taken Unknown] OLANZapine [Zyprexa] 10 mg PO DAILY PRN 07/18/18 [Last Taken Unknown] OXcarbazepine [Trileptal 300mg (*)] 900 mg PO HS 07/18/18 [Last Taken 07/24/18] Propranolol HCl [Inderal 20mg (*)] 20 mg PO DAILY 07/18/18 [Last Taken 07/24/18] Propranolol HCl [Inderal 20mg (*)] 30 mg PO HS 07/18/18 [Last Taken 07/24/18] QUEtiapine FUMARATE [Seroquel 300mg (*)] 900 mg PO HS 07/18/18 [Last Taken 07/24] lamOTRIGine [Lamotrigine] 300 mg PO DAILY 07/18/18 [Last Taken 07/24/18] ALPRAZolam [Xanax 0.25 MG (*)] 0.25 mg PO BID PRN 07/25/18 [Last Taken Unknown] Herbals/Supplements -Info Only 1 ea PO DAILY 07/25/18 [Last Taken Unknown] - NPO status NPO Since - Liquids (Date): 07/25/18 NPO Since - Liquids (Time): 00:00 NPO Since - Solids (Date): 07/25/18 NPO Since - Solids (Time): 00:00 - Smoking Hx Smoking Status: Current every day smoker ANE Labs/Vital Signs - Labs Result Diagrams: 07/25/18 05:20 07/25/18 05:20 - Vital Signs Blood Pressure: 135/87 Heart Rate: 60 Respiratory Rate: 16 O2 Sat (%): 96 Height: 182.88 cm Weight: 77.1 kg ANE Physical Exam - Airway Neck exam: FROM Mallampati Score: Class 1 Mouth exam: normal dental/mouth exam - Pulmonary Pulmonary: no respiratory distress, no rales or rhonchi - Cardiovascular Cardiovascular: regular rate and rhythym, no murmur, rub, or gallop - ASA Status ASA Status: III ANE Anesthesia Plan Anesthesia Plan: GA with mask Total IV Anesthesia: Yes
[2018-07-25] MEDS ORDERED: fentaNYL 100 MCG/2 ML INJ IVP PRN (14:17)
[2018-07-25] MEDS ORDERED: MEPERIDINE 25 MG/0.5 ML AMP IVP PRN (14:17)
[2018-07-25] MEDS ORDERED: NALOXONE HCL 0.4 MG/ML INJ IVP PRN (14:17)
[2018-07-25] MEDS ORDERED: LR 500 ML IV PRN (14:17)
--- NOTE | 2018-07-25 14:26 | GIREPORT ---
[facility] Surgical Services - Endoscopy Department Patient Name: Nate Guardado Procedure Date: 07/25/2018 1:15 PM Patient Type: Inpatient Attending MD/ ER Physician: Blane Leal MD Procedure: Upper GI endoscopy Indications: Abdominal pain in the right upper quadrant, Heartburn, Nausea with vomi ting Providers: Blane Leal MD Medicines: Propofol per Anesthesia Complications: No immediate complications. Description of Procedure: After obtaining informed consent, the endoscope was passed under direct vision. Throughout the procedure, the patient's blood pressure, pulse, and oxygen saturations were monitored continuously. The Endoscope was intro duced through the mouth, and advanced to the second part of duodenum. The [facility] er GI endoscopy was accomplished without difficulty. The patient tolerated th e procedure well. Findings: Patchy, white plaques were found in the upper third of the esophagus. Biopsies were taken with a cold forceps for histology. Mucosal changes including ringed esophagus and longitudinal furrows wer e found in the middle third of the esophagus and in the lower third of th e esophagus. Biopsies were obtained from the proximal and distal esophagu s with cold forceps for histology of suspected eosinophilic esophagitis. A few dispersed, small non-bleeding erosions were found in the gastric body and in the prepyloric region of the stomach. There were no stigmata of recent bleeding. Biopsies were taken with a cold forceps for histology. The duodenal bulb, first portion of the duodenum and second portion of the duodenum were normal. Biopsies for histology were taken with a cold for ceps for evaluation of celiac disease. Estimated Blood Loss: Estimated blood loss: none. Post Op Diagnosis: - Esophageal plaques were found, suspicious for candidiasis. Biopsied. - Esophageal mucosal changes suggestive of eosinophilic esophagitis. Biopsied. - Non-bleeding erosive gastropathy. Biopsied. - Normal duodenal bulb, first portion of the duodenum and second portio n of the duodenum. Biopsied. Recommendation: - Advance diet as tolerated. - Use Protonix (pantoprazole) 40 mg PO BID. - Nystatin swish and swallow TID for 10 days - Check HIV status although I feel his esophageal candidiasis is second balta to MDI use, but this along with his unprovoked C.difficle colitis would be worth checking. - [facility]. - Thank you for allowing me to be involved in the care of your patient. Attending Participation: I personally performed the entire procedure without the assistance of a fellow, resident or surg ical registrar assistant. Blane Leal MD Blane Leal MD 07/25/2018 2:25:51 PM This report has been signed electronicallyDavid MD Mel Number of Addenda: 0 Note Initiated On: 07/25/2018 1:15 PM [email or web address]
--- NOTE | 2018-07-25 14:44 | POSTANESTH ---
Post Anesthetic Evaluation Cardiovascular Status: Normal, Stable Respiratory Status: Normal, Stable Level of Consciousness/Mental Status: Can Participate in Eval, Moderately Sleepy Pain Control: Adequate, Prn Tx Ordered Nausea/Vomiting Control: Adequate, Prn Tx Ordered Complications Possibly Related to Anesthesia: None Noted
[2018-07-25] MEDS: NYSTATIN SUSP 500000 UNIT/5 ML UD LIQ PO SCH ×2 (15:19→20:29)
[2018-07-25] MEDS: lamoTRIgine 100 MG TAB PO SCH (15:19)
[2018-07-25] MEDS: PROPRANOLOL HCL 20 MG TAB PO SCH ×2 (15:20→20:28)
[2018-07-25 16:59] LABS: HIV TYPE 1 AND 2 NEGATIVE (NEGATIVE)
[2018-07-25] MEDS: ONDANSETRON DISINTEGRATING 4 MG TAB PO PRN (17:53)
[2018-07-25] MEDS: oxyCODONE IR 5 MG TAB PO PRN ×3 (17:53→23:03)
[2018-07-25] MEDS: PANTOPRAZOLE SODIUM 40 MG TAB PO SCH (20:28)
[2018-07-25] MEDS: OXcarbazepine 300 MG TAB PO SCH (20:28)
[2018-07-25] MEDS: QUEtiapine FUMARATE 300 MG TAB PO SCH (23:03)
[2018-07-26] MEDS: ACETAMINOPHEN 325 MG TAB PO PRN ×2 (01:03→16:40)
[2018-07-26] MEDS: VANCOMYCIN 125 MG/2.5 ML UDL PO SCH ×4 (06:27→20:36)
[2018-07-26] MEDS: NYSTATIN SUSP 500000 UNIT/5 ML UD LIQ PO SCH ×4 (06:27→20:36)
[2018-07-26] MEDS: PROPRANOLOL HCL 20 MG TAB PO SCH ×2 (08:55→20:37)
[2018-07-26] MEDS: lamoTRIgine 100 MG TAB PO SCH (08:55)
[2018-07-26] MEDS: PANTOPRAZOLE SODIUM 40 MG TAB PO SCH ×2 (08:56→20:38)
[2018-07-26] MEDS ORDERED: Herbals/Supplements -Info Only PO SCH (09:00)
--- NOTE | 2018-07-26 12:53 | HOSPPROG ---
Hospitalist Progress Note Assessment/Plan: 28 yo M w/ hx of BPD and recent diagnosis of C. Difficile diarrhea presents with persistent abdominal pain and diarrhea. *abdominal pain and diarrhea -reviewed results of repeat CT-show small amount of free pelvic fluid -curb sided surgery and they did not see any free air on the CT scan -s/p EGD which showed thrush (on nystatin) and eosinophilia esophagitis ( Protonix bid) -has persistent abdominal pain at night *C diff colitis -cont oral vanco -has approximately one day left of treatment *bipolar disorder -stable -resumed home meds -this is stable *hypokalemia -resolved *hyponatremia -likely due to hypovolemia *plan: Dr Glaser to come further evaluate, having ongoing abdominal pain that increases nightly. reviewed results of HIV testing abelino Sullivan. Subjective: Nate is very concerned about being discharged because he has persistent abdominal pain that comes on nightly. Objective: Vital Signs Temp Pulse Resp BP Pulse Ox 36.6 C 80 16 119/65 97 07/26/18 11:09 07/26/18 11:09 07/26/18 11:09 07/26/18 11:09 07/26/18 11:09 Laboratory Results 07/25/18 05:20 07/26/18 05:02 07/25/18 07/26/18 07/27/18 05:59 05:59 05:59 Intake Total 1000 500 Output Total 5 Balance 1000 495 - Physical Exam Constitutional: appears nourished, uncomfortable Eyes: PERRL Ears, Nose, Mouth, Throat: hearing normal Respiratory: no respiratory distress Gastrointestinal: normoactive bowel sounds, tenderness (Right lower quadrant) Skin: warm Musculoskeletal: full muscle strength Neurologic: AAOx3 Psychiatric: interacting appropriately ICD10 Worksheet Patient Problems: Problems Problem Status Onset Clostridium difficile colitis Acute Abdominal pain Acute
[2018-07-26] MEDS ORDERED: PEG 3350/NA SULF,BICARB,CL/KCL (GAVILYTE-G) 4000 ML BTL PO ONE (17:06)
--- NOTE | 2018-07-26 17:12 | SOAPPROG ---
SOAP Progress Note Assessment/Plan: Assessment/Plan: Continued abdominal pain. Overall, with it's chronicity, dating back to 2014, suspect functional (irritable bowel syndrome) and psychosomatic only. With his diarrhea, however, a colonic lesion is possible, but less likely. - prep >> colonoscopy tomorrow 07/26/18 17:08 Subjective: cc: abdominal pain Continued pain. No rigors, chills, sweats, vomiting. Pain dates back to 2014, with at least four CT scans over the years. /5 CT with a normal colon. Past negative US, HIDA scan, ejection fraction. EGD unremarkable, in terms of findings that would cause pain. Objective: Vital Signs Temp Pulse Resp BP Pulse Ox 36.9 C 69 16 122/85 H 97 07/26/18 15:26 07/26/18 15:26 07/26/18 15:26 07/26/18 15:26 07/26/18 15:26 Laboratory Results 07/25/18 05:20 07/26/18 05:02 07/25/18 07/26/18 07/27/18 05:59 05:59 05:59 Intake Total 1000 500 Output Total 5 Balance 1000 495 EGD bxs pending Physical Exam - Physical Exam General Appearance: WD/WN, alert, no apparent distress EENT: PERRL/EOMI, normal ENT inspection, pharynx normal, TMs normal Neck: non-tender, full range of motion, supple, normal inspection Respiratory: chest non-tender, lungs clear, normal breath sounds Cardiac/Chest: normal peripheral pulses, regular rate, rhythm Peripheral Pulses: 2+: carotid (R), carotid (L), femoral (R), femoral (L), dorsalis-pedis (R), dorsalis-pedis (L) Abdomen: normal bowel sounds, non-tender, soft Male Genitalia: deferred Rectal: deferred Back: Normal inspection Skin: normal color, warm/dry Lymphatic: no adenopathy Extremities: normal range of motion, non-tender, normal inspection, normal capillary refill Neuro/Psych: no motor/sensory deficits, alert, normal mood/affect, oriented x 3 ICD10 Worksheet Patient Problems: Problems Problem Status Onset Clostridium difficile colitis Acute Abdominal pain Acute
[2018-07-26] MEDS: QUEtiapine FUMARATE 300 MG TAB PO SCH (20:36)
[2018-07-26] MEDS: OXcarbazepine 300 MG TAB PO SCH (20:38)
[2018-07-26] MEDS ORDERED: POTASSIUM CL 10 MEQ TAB PO ONE (20:48)
[2018-07-26] MEDS: ONDANSETRON DISINTEGRATING 4 MG TAB PO PRN (20:59)
[2018-07-27] MEDS: NS 1,000 ML IV SCH ×2 (03:38→17:01)
[2018-07-27] MEDS: VANCOMYCIN 125 MG/2.5 ML UDL PO SCH ×4 (05:17→20:54)
[2018-07-27] MEDS: NYSTATIN SUSP 500000 UNIT/5 ML UD LIQ PO SCH ×4 (05:17→20:53)
[2018-07-27] MEDS ORDERED: DICYCLOMINE 10 MG CAP PO PRN (07:08)
[2018-07-27] MEDS ORDERED: POTASSIUM CL 10 MEQ TAB PO ONE (07:08)
--- NOTE | 2018-07-27 07:13 | SOAPPROG ---
SOAP Progress Note Assessment/Plan: Assessment/Plan: Abdominal pain. Overall, with it's chronicity, extensive negative work-up, multiple unremarkable CTs, dating back to 2015, etc., suspect functional ( irritable bowel syndrome) and psychosomatic only. Pt. did not do colonoscopy prep (made him nauseous, etc.). This is quite reasonable, considering overall very low yield. - dicyclomine prn abdominal pain - else, management of his pain will need to be psychiatric in nature ( psychoactive medicines, cognitive-behavioral counseling, etc.). Will sign off; please call if we can be of further help [phone]). Thanks! 07/27/18 16:40 Subjective: cc: abdominal pain Abdominal pain at night. N/V. No rigors, chills, sweats, hematemesis, hematochezia. Wasn't able to prep. Objective: Vital Signs Temp Pulse Resp BP Pulse Ox 36.4 C 71 16 130/81 H 96 07/27/18 03:10 07/27/18 03:10 07/27/18 03:10 07/27/18 03:10 07/27/18 03:10 Laboratory Results 07/25/18 05:20 07/27/18 04:27 07/26/18 07/27/18 07/28/18 05:59 05:59 05:59 Intake Total 500 900 Output Total 5 25 Balance 495 -25 900 EGD path pending Physical Exam - Physical Exam General Appearance: WD/WN, alert, no apparent distress EENT: PERRL/EOMI, normal ENT inspection, pharynx normal, TMs normal Neck: non-tender, full range of motion, supple, normal inspection Respiratory: chest non-tender, lungs clear, normal breath sounds Cardiac/Chest: normal peripheral pulses, regular rate, rhythm Peripheral Pulses: 2+: carotid (R), carotid (L), femoral (R), femoral (L), dorsalis-pedis (R), dorsalis-pedis (L) Abdomen: normal bowel sounds, non-tender, soft Male Genitalia: deferred Rectal: deferred Back: Normal inspection Skin: normal color, warm/dry Lymphatic: no adenopathy Extremities: normal range of motion, non-tender, normal inspection, normal capillary refill Neuro/Psych: no motor/sensory deficits, alert, normal mood/affect, oriented x 3 ICD10 Worksheet Patient Problems: Problems Problem Status Onset Clostridium difficile colitis Acute Abdominal pain Acute
[2018-07-27] MEDS: PROMETHAZINE HCL 25 MG/ML INJ IVP PRN ×2 (11:05→14:52)
[2018-07-27] MEDS: PROPRANOLOL HCL 20 MG TAB PO SCH ×2 (11:09→20:51)
[2018-07-27] MEDS: lamoTRIgine 100 MG TAB PO SCH (11:09)
[2018-07-27] MEDS: PANTOPRAZOLE SODIUM 40 MG TAB PO SCH ×2 (11:09→20:55)
--- NOTE | 2018-07-27 11:56 | HOSPPROG ---
Hospitalist Progress Note Assessment/Plan: 28 yo M w/ hx of bipolar disorder and recent diagnosis of C. Difficile diarrhea presents with persistent abdominal pain and diarrhea. Still has very poor oral intake and intermittent pain and N/V. *abdominal pain and diarrhea - CT with no free air. EGD showed thrush (on nystatin) and eosinophilia esophagitis (Protonix bid), GI does not expect this to cause pain. C-scope deferred as pt unable to do prep due to N/V, GI suspects this would be low yield and suggests symptoms may be functional. -pain control, symptom management -prn bentyl *nausea/vomiting - not taking adequate po -anti-emetics, cont IVF's *C diff colitis -cont oral vanco -has approximately one day left of treatment *bipolar disorder - overall stable, but he is very anxious -cont home meds, including prn ativan -will request behavioral health psych coordinator to assist with helping pt cope, it's thought some of his GI symptoms may be partially psychosomatic in nature *hypokalemia - likely 2/2 GI losses with vomiting and diarrhea -on protocol *hyponatremia - likely due to hypovolemia -follow *dvt pplx - low risk, though hosp day 3, will order SCD's, ambulation *dispo - cont inpt, unable to d/c due to poor oral intake Subjective: Pt reports N/V after attempt at colon prep. Still gets pain at night. Also had some respiratory difficulty overnight, thinks it may have been an asthma exacerbation. No SOB or wheezing this am. He is not taking much po due to N/V. No fevers. Objective: Vital Signs Temp Pulse Resp BP Pulse Ox 36.8 C 74 16 125/70 H 98 07/27/18 07:44 07/27/18 07:44 07/27/18 07:44 07/27/18 07:44 07/27/18 07:44 Laboratory Results 07/25/18 05:20 07/27/18 04:27 07/26/18 07/27/18 07/28/18 05:59 05:59 05:59 Intake Total 500 900 Output Total 5 25 Balance 495 -25 900 - Physical Exam Constitutional: no apparent distress Eyes: PERRL Ears, Nose, Mouth, Throat: moist mucous membranes Cardiovascular: regular rate and rhythym Respiratory: no respiratory distress, clear to auscultation Gastrointestinal: normoactive bowel sounds, soft, non-tender abdomen Skin: warm Musculoskeletal: full muscle strength Neurologic: AAOx3 Psychiatric: interacting appropriately, anxious ICD10 Worksheet Patient Problems: Problems Problem Status Onset Clostridium difficile colitis Acute Abdominal pain Acute
--- NOTE | 2018-07-27 11:58 | ASMTCMCOM ---
CM Note CM Note Notes: CM discussed with ALEX Thomas. Patient did not complete colonoscopy prep, likely discharge today or tomorrow independent. CM to follow. D/C Plan: Independent. Date Signed: 07/27/2018 11:57 AM Electronically Signed By:Britney Ramirez
[2018-07-27] MEDS: ACETAMINOPHEN 325 MG TAB PO PRN (14:53)
[2018-07-27] MEDS: oxyCODONE IR 5 MG TAB PO PRN (15:43)
[2018-07-27] MEDS: QUEtiapine FUMARATE 300 MG TAB PO SCH (20:54)
[2018-07-27] MEDS: OXcarbazepine 300 MG TAB PO SCH (20:55)
[2018-07-28] MEDS: NYSTATIN SUSP 500000 UNIT/5 ML UD LIQ PO SCH ×4 (06:05→20:17)
[2018-07-28] MEDS: NS 1,000 ML IV SCH (06:07)
[2018-07-28] MEDS ORDERED: POTASSIUM CL 10 MEQ TAB PO ONE (07:21)
[2018-07-28] MEDS: PROPRANOLOL HCL 20 MG TAB PO SCH ×2 (09:03→20:12)
[2018-07-28] MEDS: lamoTRIgine 100 MG TAB PO SCH (09:03)
[2018-07-28] MEDS: PANTOPRAZOLE SODIUM 40 MG TAB PO SCH ×2 (09:03→20:15)
--- NOTE | 2018-07-28 10:23 | HOSPPROG ---
Hospitalist Progress Note Assessment/Plan: 28 yo M w/ hx of BPD and recent diagnosis of C. Difficile diarrhea presents with persistent abdominal pain and diarrhea. *abdominal pain and diarrhea - CT with no free air. EGD showed thrush (on nystatin) and eosinophilia esophagitis (Protonix bid), GI does not expect this to cause pain. C-scope deferred as pt unable to do prep due to N/V, GI suspects this would be low yield and suggests symptoms may be functional. -pain control, symptom management -prn bentyl, trial of Carafate -will get a repeat abdominal x ray -says he can't eat today and drink much -has had multiple w/u dating back to 2014-CT scan's which showed nothing acute, HIDA scan 2014 showed nl gallbladder *C diff colitis -cont oral vanco -should be done w treatment *bipolar disorder -stable -resumed home meds -this is stable *hypokalemia -resolved *hyponatremia -likely due to hypovolemia *plan: Sherri Antunez (RN w psychiatry to see)- I am not sure what is causing his abdominal pain, ?somatoform disorder as a possible differential. He has multiple complaints: breathing problems, abdominal pain, hx of migraines. Will get a repeat abd x ray, check for h pylori. Saw a urologist and business center representative prior to being admitted. Subjective: Nate said he feels weak and is unable to take in adequate po. Continues to c/o abdominal pain. Objective: Vital Signs Temp Pulse Resp BP Pulse Ox 36.6 C 67 16 121/67 H 95 07/28/18 08:00 07/28/18 09:03 07/28/18 08:00 07/28/18 09:03 07/28/18 08:00 Laboratory Results 07/25/18 05:20 07/28/18 04:55 07/27/18 07/28/18 07/29/18 05:59 05:59 05:59 Intake Total 900 Output Total 25 Balance -25 900 - Physical Exam Constitutional: uncomfortable Eyes: PERRL Ears, Nose, Mouth, Throat: hearing normal Cardiovascular: regular rate and rhythym Respiratory: no respiratory distress Gastrointestinal: normoactive bowel sounds, No tenderness (slight in r lower quadrant) Skin: warm Musculoskeletal: full muscle strength Neurologic: AAOx3 Psychiatric: interacting appropriately, depressed ICD10 Worksheet Patient Problems: Problems Problem Status Onset Clostridium difficile colitis Acute Abdominal pain Acute
[2018-07-28] MEDS: ACETAMINOPHEN 325 MG TAB PO PRN ×2 (13:14→20:14)
--- NOTE | 2018-07-28 15:20 | ASMTCMCOM ---
CM Note CM Note Notes: Spoke with pt in the room and with hospitalist. Per hospitalist's request and pt's approval, CM made appointment for new pt PCP appointment with Dr. Hugo Rosales for this coming . Pt also seen by Behavioral Health RN who provided pt with resources regarding mind body practices, acupuncture and mental health resources. Pt to discharge independently, likely tomorrow. CM to follow. D/c Plan: Independent. Date Signed: 07/28/2018 03:19 PM Electronically Signed By:Carmen Dodd
[2018-07-28] MEDS: SUCRALFATE 1 GM/10 ML UDCUP PO SCH ×2 (16:41→20:15)
[2018-07-28] MEDS: LR 1,000 ML IV SCH (17:40)
--- NOTE | 2018-07-28 18:01 | PDMN ---
Medical Necessity Medical necessity: [facility] [place] Abdominal Pain, Undiagnosed, A-1 day: 28 yo w/ recent dx Cdiff diarrhea post tx c/o persistent abd pain and diarrhea. Initially OBS for workup/tx. EGD performed. Pt still unable to eat well beyond observation care requiring ongoing IVF, was on NS, switch to LR. Unclear etiology for s/sx. Cont to be symptomatic. Cont w/ diagnostic testing. psychological stress evaluatorbreonna viveros for assistance with coping issues. Meets [facility] [place] IP criteria for abd pain with inability to maintain oral hydration that persists beyond OBS care tx. Hx Bipolar d/o, OCD, etoh abuse hx in remission, asthma, smoker. Change to IP status 07/28/18@1736 per COMMUNICATIONS ANALYST order.
[2018-07-28] MEDS: OXcarbazepine 300 MG TAB PO SCH (20:13)
[2018-07-28] MEDS: QUEtiapine FUMARATE 300 MG TAB PO SCH (20:15)
[2018-07-29] MEDS ORDERED: POTASSIUM CL 10 MEQ TAB PO ONE ×2 (01:08→07:36)
[2018-07-29] MEDS: LR 1,000 ML IV SCH (04:33)
[2018-07-29] MEDS: NYSTATIN SUSP 500000 UNIT/5 ML UD LIQ PO SCH ×4 (05:20→20:29)
[2018-07-29] MEDS: PANTOPRAZOLE SODIUM 40 MG TAB PO SCH ×2 (10:42→20:28)
[2018-07-29] MEDS: PROPRANOLOL HCL 20 MG TAB PO SCH ×2 (10:42→20:29)
[2018-07-29] MEDS: SUCRALFATE 1 GM/10 ML UDCUP PO SCH ×4 (10:42→20:28)
[2018-07-29] MEDS: lamoTRIgine 100 MG TAB PO SCH (10:43)
--- NOTE | 2018-07-29 16:23 | HOSPPROG ---
Hospitalist Progress Note Assessment/Plan: 28 yo M w/ hx of BPD and recent diagnosis of C. Difficile diarrhea presents with persistent abdominal pain and diarrhea. abdominal pain and diarrhea - CT with no free air. EGD showed thrush (on nystatin) and eosinophilia esophagitis (Protonix bid), GI does not expect this to cause pain. C-scope deferred as pt unable to do prep due to N/V, GI suspects this would be low yield and suggests symptoms may be functional. pain control, symptom management change bentyl to scheduled repeat abdominal x ray unremarkable says he can't eat today and drink much has had multiple w/u dating back to 2014-CT scan's which showed nothing acute , HIDA scan 2014 showed nl gallbladder C diff colitis cont oral vanco should be done w treatment at discharge bipolar disorder stable resumed home meds this is stable reluctant to add nortriptyline hypokalemia resolved dc protocol hyponatremia likely due to hypovolemia plan: continue to encourage po, reassure that his pain is not secondary to some undiagnosed catastrophe Subjective: abd film unremarkable (interp by me) Objective: Vital Signs Temp Pulse Resp BP Pulse Ox 36.6 C 71 16 124/68 H 98 07/29/18 07:46 07/29/18 07:46 07/29/18 07:46 07/29/18 07:46 07/29/18 07:46 Laboratory Results 07/29/18 04:54 07/28/18 07/29/18 07/30/18 05:59 05:59 05:59 Intake Total 487 Balance 487 - Physical Exam Constitutional: no apparent distress, appears nourished Eyes: PERRL, anicteric sclera Ears, Nose, Mouth, Throat: moist mucous membranes, hearing normal Cardiovascular: regular rate and rhythym, no murmur, rub, or gallop Respiratory: no respiratory distress, no rales or rhonchi Gastrointestinal: normoactive bowel sounds, soft, non-tender abdomen Genitourinary: no bladder fullness Skin: warm, normal color Musculoskeletal: full muscle strength Neurologic: AAOx3 ICD10 Worksheet Patient Problems: Problems Problem Status Onset Clostridium difficile colitis Acute Abdominal pain Acute
[2018-07-29] MEDS: DICYCLOMINE 10 MG CAP PO SCH (20:28)
[2018-07-29] MEDS: OXcarbazepine 300 MG TAB PO SCH (20:29)
[2018-07-29] MEDS: ACETAMINOPHEN 325 MG TAB PO PRN (22:05)
[2018-07-29] MEDS: QUEtiapine FUMARATE 300 MG TAB PO SCH (22:11)
[2018-07-29] MEDS: ONDANSETRON DISINTEGRATING 4 MG TAB PO PRN (23:19)
[2018-07-30] MEDS: NYSTATIN SUSP 500000 UNIT/5 ML UD LIQ PO SCH ×2 (05:37→11:16)
[2018-07-30] MEDS: DICYCLOMINE 10 MG CAP PO SCH ×2 (05:37→11:16)
[2018-07-30 07:37] VITALS: BP 112/56
[2018-07-30] MEDS: PANTOPRAZOLE SODIUM 40 MG TAB PO SCH (11:07)
[2018-07-30] MEDS: PROPRANOLOL HCL 20 MG TAB PO SCH (11:07)
[2018-07-30] MEDS: lamoTRIgine 100 MG TAB PO SCH (11:07)
[2018-07-30] MEDS: SUCRALFATE 1 GM/10 ML UDCUP PO SCH ×2 (11:07→11:09)
[2018-07-30] MEDS: ACETAMINOPHEN 325 MG TAB PO PRN (13:02)
--- NOTE | 2018-07-30 15:11 | HOSPPROG ---
Hospitalist Progress Note Assessment/Plan: 28 yo M w/ hx of BPD and recent diagnosis of C. Difficile diarrhea presents with persistent abdominal pain and diarrhea. abdominal pain and diarrhea - CT with no free air. EGD showed thrush (on nystatin) and eosinophilia esophagitis (Protonix bid), GI does not expect this to cause pain. C-scope deferred as pt unable to do prep due to N/V, GI suspects this would be low yield and suggests symptoms may be functional. pain control, symptom management change jasonyl to scheduled repeat abdominal x ray unremarkable says he can't eat today and drink much has had multiple w/u dating back to 2014-CT scan's which showed nothing acute , HIDA scan 2015 showed nl gallbladder C diff colitis cont oral vanco should be done w treatment at discharge bipolar disorder stable resumed home meds this is stable reluctant to add nortriptyline hypokalemia resolved dc protocol hyponatremia likely due to hypovolemia plan: home today > 30 minutes Subjective: amenable to dc Objective: Vital Signs Temp Pulse Resp BP Pulse Ox 36.5 C 62 16 112/56 L 94 07/30/18 07:36 07/30/18 07:36 07/30/18 07:36 07/30/18 07:36 07/30/18 07:36 Laboratory Results 07/29/18 04:54 07/29/18 07/30/18 07/31/18 05:59 05:59 05:59 Intake Total 487 420 Balance 487 420 - Physical Exam Constitutional: no apparent distress, appears nourished Eyes: PERRL, anicteric sclera Ears, Nose, Mouth, Throat: moist mucous membranes, hearing normal Cardiovascular: regular rate and rhythym, no murmur, rub, or gallop Respiratory: no respiratory distress, no rales or rhonchi Gastrointestinal: normoactive bowel sounds, soft, non-tender abdomen Genitourinary: no bladder fullness, No doll in urethra Skin: warm, normal color Musculoskeletal: full muscle strength, no muscle tenderness Neurologic: AAOx3 Psychiatric: interacting appropriately Lymph, Heme, Immunologic: no cervical LAD ICD10 Worksheet Patient Problems: Problems Problem Status Onset Clostridium difficile colitis Acute Abdominal pain Acute
--- NOTE | 2018-07-30 16:11 | GDS ---
[f rep st] DISCHARGE SUMMARY DISCHARGE DIAGNOSES: 1. Eosinophilic esophagitis. 2. Functional abdominal pain consistent with irritable bowel syndrome. 3. Bipolar. 4. Anxiety. 5. Clostridium difficile. HOSPITAL COURSE: Please see admission history and physical by Darío Dennis. The patient pre sented with C difficile and abdominal pain. He is in the process of being treated. He underwent end oscopy which showed patchy erythematous mucosa. The biopsy was consistent possibly with eosinophilic esophagitis, the treatment for which is PPI b.i.d. He also had what appeared to be esophageal bob diasis and was treated with fluconazole. Patient was followed by GI. He continued to have multiple abdominal pains. He was clearly anxious. He had a difficult time eating. Abdominal imaging was unremarkable including CT on admission. Also , the patient with encouragement was amenable to discharge with outpatient followup with his primary care physician and psychiatrist. It would be reasonable to add nortriptyline to his regimen for irritable bowel syndrome. However, gi aye his significant bipolar disease and prior history of manic episodes, reluctant to do so without d iscussing with his primary psychiatrist whom I was unable to get in touch with. New discharge medications are 6 more days of fluconazole and a month of b.i.d. PPI. /[id number]/MODL
== END 2018-07-30 17:06 | disposition home or self-care (01) | DRG 392 ==
LOC: F3E 07-25 01:34 → OBSVTOIN 07-28 17:36
PROVIDERS: ADMIT Student in an Organized Health Care Education/Training Program; ATTEND Internal Medicine
DX: K58.0 Irritable bowel syndrome with diarrhea (principal); K20.0 Eosinophilic esophagitis; B37.81 Candidal esophagitis; A04.72 Enterocolitis due to Clostridium difficile, not specified as recurrent; J45.909 Unspecified asthma, uncomplicated; F31.9 Bipolar disorder, unspecified; F42.9 Obsessive-compulsive disorder, unspecified; Z72.0 Tobacco use
CPT/HCPCS: G0378; J1100; J1170; J1885; J2250; J2405; J2550; J2704; J3010; J3480; Q9967

== ENCOUNTER 2018-08-01 01:25 | Emergency (ER) | payer OTHER ==
--- NOTE | 2018-08-01 01:46 | EDPHY ---
H & P Stated Complaint: CP, ongoing vomiting, dizzy, diarrhea, +C diff, DC'd 2 days ago Time Seen by Provider: 08/01/18 01:46 HPI/ROS: HPI CHIEF COMPLAINT: Chest pain, abdominal pain HISTORY OF PRESENT ILLNESS: Patient is a 28-year-old male, presents emergency room with abdominal pain that is a chronic issue for him, as well as chest pain. He reports that he has had chest pain since 5:00 p.m. Yesterday. It has been constant he describes sharp stabbing nonradiating. Center of his chest. He has had this before. Addition complains of chronic abdominal pain. He has nausea but has had 1 episode of vomiting. Denies any fever. States his abdominal pain is about as what it typically is. He suffers from anxiety as well. He states he was feeling more anxious and manic tonight. Not suicidal. Past Medical History: History of eosinophilic esophagitis, functional abdominal pain, IBS, bipolar disorder, C diff Past Surgical History: No recent surgical history Social History: Denies daily use of drugs alcohol tobacco. Family History: Noncontributory ROS REVIEW OF SYSTEMS: 10 Systems were reviewed and negative with the exception of the elements mentioned in the history of present illness. Exam Constitutional nontoxic, triage nursing summary reviewed, vital signs reviewed , awake/alert. Eyes normal conjunctivae and sclera, EOMI, PERRLA. HENT normal inspection, atraumatic, moist mucus membranes, no epistaxis, neck supple/ no meningismus, no raccoon eyes. Respiratory clear to auscultation bilaterally, normal breath sounds, no respiratory distress, no wheezing. Cardiovascular rate normal, regular rhythm, no murmur, no edema, distal pulses normal. Gastrointestinal soft, non-tender, no rebound, no guarding, normal bowel sounds, no distension, no pulsatile mass. Genitourinary no CVA tenderness. Musculoskeletal no midline vertebral tenderness, full range of motion, no calf swelling, no tenderness of extremities, no meningismus, good pulses, neurovascularly intact. Skin pink, warm, & dry, no rash, skin atraumatic. Neurologic awake, alert and oriented x 3, AAOx3, moves all 4 extremities equally, motor intact, sensory intact, CN II-XII intact, normal cerebellar, normal vision, normal speech. Psychiatric normal mood/affect. Heme/Lymph/Immune no lymphadenopathy. Differential Diagnosis: Differential diagnosis includes but is not limited to and in no particular order: Bowel obstruction, appendicitis, gallbladder disease, diverticulitis, colitis, enteritis, perforated viscus, gastritis, GERD , esophagitis, urinary tract infection, pyelonephritis, kidney stones Medical Decision Making: Plan for this patient IV establishment IV fluid bolus , GI cocktail, IV Ativan for anxiety 1 mg, EKG, troponin, chest x-ray, basic labs re-evaluate. Re-evaluation: EKG interpretation by me on record in [employer] system. Impression time of EKG 1:54 a.m. Sinus rhythm rate of 95, T-wave abnormalities lead 3 and AVF, no ST elevation when I compare this to his old EKG dated 07/30/2017 very similar in morphology. EKG interpretation by me on record in [employer] system. Impression time of EKG 6:27 a.m. Sinus rhythm rate of 67, with no signs of acute ischemia no ST elevation no ST depression no T-wave abnormalities. Unremarkable nonischemic EKG. This was a repeat EKG for abdominal pain nausea chest pain. He has no chest pain at this time. ED x-ray chest one view negative for acute cardiopulmonary disease. 0643: Patient re-evaluated this time is resting comfortably he denies any chest pain or abdominal pain at this time. He states he feels much better after IV fluids GI cocktail and IV Ativan. He has been sleeping for multiple hours here in the emergency room. He has not had any vomiting. Re-examination is abdomen is soft nontender. Chest x-ray reviewed shows no acute cardiopulmonary disease. Patient feeling much better. We discussed return precautions he understands return emergency room if develops worsening abdominal pain, fever, vomiting He is comfortable discharge planning 2nd troponin 0.00. 2nd EKG at 6:27 a.m. Negative for acute ischemic change. Patient updated feels comfortable being discharged. He p.o. Challenge well without any significant chest pain or abdominal pain. Patient p.o. Challenge well. I do encourage him to eat potassium containing foods. His K was slightly low. We discussed return precautions return emergency room if worsening symptoms abdominal pain, fever, vomiting, not doing well Source: Patient - Personal History Current Tetanus/Diphtheria Vaccine: Yes Current Tetanus Diphtheria and Acellular Pertussis (TDAP): Yes Tetanus Vaccine Date: 2009 - Medical/Surgical History Hx Asthma: Yes Hx Chronic Respiratory Disease: No Hx Diabetes: No Hx Cardiac Disease: No Hx Renal Disease: No Hx Cirrhosis: No Hx Alcoholism: No Hx HIV/AIDS: No Hx Splenectomy or Spleen Trauma: No Other PMH: asthma, bipolar,depression, OCD, C diff - Social History Smoking Status: Current every day smoker Constitutional: Initial Vital Signs Temperature (C) 36.4 C 08/01/18 01:27 Heart Rate 105 H 08/01/18 01:27 Respiratory Rate 20 08/01/18 01:27 Blood Pressure 119/81 H 08/01/18 01:27 O2 Sat (%) 97 08/01/18 01:27 O2 Delivery Mode Room Air Allergies/Adverse Reactions: cefixime [From Suprax] Allergy (Verified 08/01/18 01:25) cefuroxime axetil [From Ceftin] Allergy (Verified 08/01/18 01:25) clarithromycin [From Biaxin] Allergy (Verified 08/01/18 01:25) erythromycin base [Erythromycin Base] Allergy (Verified 08/01/18 01:25) montelukast sodium [From Singulair] Allergy (Verified 08/01/18 01:25) peanut Allergy (Verified 08/01/18 01:25) Penicillins Allergy (Verified 08/01/18 01:25) tree nut Allergy (Verified 08/01/18 01:25) Home Medications: Medication Instructions Recorded LORazepam [Ativan] 0.5 mg PO BID PRN 09/07/14 Albuterol [Ventolin Hfa Inhaler] 1 - 2 puffs IH Q4 PRN 07/18/18 OLANZapine [Zyprexa] 10 mg PO DAILY PRN 07/18/18 OXcarbazepine [Trileptal 300mg (*)] 900 mg PO HS 07/18/18 Ondansetron Odt [Zofran Odt 4 mg 4 mg PO Q4HRS PRN #21 tab 07/18/18 (*)] Propranolol HCl [Inderal 20mg (*)] 20 mg PO DAILY 07/18/18 Propranolol HCl [Inderal 20mg (*)] 30 mg PO HS 07/18/18 QUEtiapine FUMARATE [Seroquel 900 mg PO HS 07/18/18 300mg (*)] Vancomycin [Vancomycin (*)] 125 mg PO Q6 #36 cap 07/18/18 lamOTRIGine [Lamotrigine] 300 mg PO DAILY 07/18/18 ALPRAZolam [Xanax 0.25 MG (*)] 0.25 mg PO BID PRN 07/25/18 Herbals/Supplements -Info Only 1 ea PO DAILY 07/25/18 Nystatin 500,000 unit PO QID #120 ml 07/30/18 Pantoprazole Sodium [Protonix 40mg 40 mg PO BID #60 tab 07/30/18 (*)] Medical Decision Making - Data Points Laboratory Results: Laboratory Results 08/01/18 02:00 08/01/18 02:00 08/01/18 08/01/18 08/01/18 06:37 02:08 02:00 WBC RBC Hgb Hct MCV MCH MCHC RDW Plt Count MPV Neut % (Auto) Lymph % (Auto) Iron % (Auto) Eos % (Auto) Baso % (Auto) Nucleat RBC Rel Count Absolute Neuts (auto) Absolute Lymphs (auto) Absolute Monos (auto) Absolute Eos (auto) Absolute Basos (auto) Absolute Nucleated RBC Immature Gran % Immature Gran # Sodium 134 mEq/L L mEq/L (135-145) Potassium 3.2 mEq/L L mEq/L (3.5-5.2) Chloride 100 mEq/L mEq/L (97-110) Carbon Dioxide 23 mEq/l mEq/l (22-31) Anion Gap 11 mEq/L mEq/L (6-14) BUN 8 mg/dL mg/dL (7-23) Creatinine 0.8 mg/dL mg/dL (0.7-1.3) Estimated GFR > 60 Glucose 114 mg/dL H mg/dL (70-100) Calcium 9.8 mg/dL mg/dL (8.5-10.4) Total Bilirubin 0.5 mg/dL mg/dL (0.1-1.4) Conjugated Bilirubin 0.3 mg/dL mg/dL (0.0-0.5) Unconjugated Bilirubin 0.2 mg/dL mg/dL (0.0-1.1) AST 16 IU/L L IU/L (17-59) ALT 31 IU/L IU/L (21-72) Alkaline Phosphatase 61 IU/L IU/L (38-126) POC Troponin I 0.00 ng/mL ng/mL 0.00 ng/mL ng/mL (0.00-0.08) (0.00-0.08) Total Protein 6.8 g/dL g/dL (6.3-8.2) Albumin 4.5 g/dL g/dL (3.5-5.0) Lipase 136 IU/L IU/L (23-300) 08/01/18 02:00 WBC 6.76 10^3/uL 10^3/uL (3.80-9.50) RBC 4.29 10^6/uL L 10^6/uL (4.40-6.38) Hgb 13.7 g/dL g/dL (13.7-17.5) Hct 37.9 % L % (40.0-51.0) MCV 88.3 fL fL (81.5-99.8) MCH 31.9 pg pg (27.9-34.1) MCHC 36.1 g/dL g/dL (32.4-36.7) RDW 12.1 % % (11.5-15.2) Plt Count 214 10^3/uL 10^3/uL (150-400) MPV 9.4 fL fL (8.7-11.7) Neut % (Auto) 50.6 % % (39.3-74.2) Lymph % (Auto) 34.8 % % (15.0-45.0) Iron % (Auto) 9.8 % % (4.5-13.0) Eos % (Auto) 4.0 % % (0.6-7.6) Baso % (Auto) 0.7 % % (0.3-1.7) Nucleat RBC Rel Count 0.0 % % (0.0-0.2) Absolute Neuts (auto) 3.42 10^3/uL 10^3/uL (1.70-6.50) Absolute Lymphs (auto) 2.35 10^3/uL 10^3/uL (1.00-3.00) Absolute Monos (auto) 0.66 10^3/uL 10^3/uL (0.30-0.80) Absolute Eos (auto) 0.27 10^3/uL 10^3/uL (0.03-0.40) Absolute Basos (auto) 0.05 10^3/uL 10^3/uL (0.02-0.10) Absolute Nucleated RBC 0.00 10^3/uL 10^3/uL (0-0.01) Immature Gran % 0.1 % % (0.0-1.1) Immature Gran # 0.01 10^3/uL 10^3/uL (0.00-0.10) Sodium Potassium Chloride Carbon Dioxide Anion Gap BUN Creatinine Estimated GFR Glucose Calcium Total Bilirubin Conjugated Bilirubin Unconjugated Bilirubin AST ALT Alkaline Phosphatase POC Troponin I Total Protein Albumin Lipase Medications Given: Discontinued Medications Al Hydroxide/Mg Hydroxide (Maalox Susp) 30 ml PO ONCE ONE Stop: 08/01/18 02:00 Last Admin: 08/01/18 02:11 Dose: 30 ml Hyoscyamine Sulfate (Levsin, Hyomax-Sl) 0.25 mg PO ONCE ONE Stop: 08/01/18 02:00 Last Admin: 08/01/18 02:11 Dose: 0.25 mg Sodium Chloride (Ns) 1,000 mls @ 0 mls/hr IV EDNOW ONE; Wide Open PRN Reason: Protocol Stop: 08/01/18 02:00 Last Admin: 08/01/18 02:02 Dose: 1,000 mls Lidocaine (Lidocaine 2% Viscous) 15 ml PO ONCE ONE Stop: 08/01/18 02:00 Last Admin: 08/01/18 02:11 Dose: 15 ml Lorazepam (Ativan Injection) 1 mg IVP EDNOW ONE Stop: 08/01/18 02:01 Last Admin: 08/01/18 02:11 Dose: 1 mg Point of Care Test Results: Chemistry 08/01/18 08/01/18 06:37 02:08 POC Troponin I 0.00 ng/mL ng/mL 0.00 ng/mL ng/mL (0.00-0.08) (0.00-0.08) Departure - Departure Disposition: Home, Routine, Self-Care Clinical Impression: Abdominal pain Qualifiers: Abdominal location: unspecified location Qualified Code(s): R10.9 - Unspecified abdominal pain Condition: Fair Instructions: Acute Abdominal Pain (ED) Additional Instructions: 1. Rogers diet over the next 24-48 hours. No spicy fatty greasy foods. 2. Return to the emergency room if he develops worsening symptoms includes worsening abdominal pain, fever, vomiting Referrals: Shoshana Lazo MD [Primary Care Provider] - As per Instructions
[2018-08-01] MEDS ORDERED: HYOSCYAMINE SULFATE 0.125 MG TAB PO ONE (01:59)
[2018-08-01] MEDS ORDERED: LIDOCAINE 2% VISCOUS 15 ML UDCUP PO ONE (01:59)
[2018-08-01] MEDS ORDERED: NS 1,000 ML IV ONE (01:59)
[2018-08-01] MEDS ORDERED: MAG HYDROX/AL HYDROX/SIMETH 30 ML UDCUP PO ONE (01:59)
[2018-08-01] MEDS ORDERED: LORazepam 2 MG/ML INJ IVP ONE (02:00)
[2018-08-01 02:12] LABS: PLATELET COUNT 214 10^3/uL (150-400)
[2018-08-01] MEDS ORDERED: POTASSIUM CL 20 MEQ PKT PO ONE (07:35)
[2018-08-01 07:46] VITALS: BP 108/72
--- NOTE | 2018-08-01 07:46 | CPEKG ---
Test Reason : OPEN Blood Pressure : / mmHG Vent. Rate : 095 BPM Atrial Rate : 096 BPM P-R Int : 132 ms QRS Dur : 103 ms QT Int : 365 ms P-R-T Axes : 072 092 -28 degrees QTc Int : 459 ms Sinus rhythm Borderline right axis deviation Nonspecific T abnormalities, inferior leads Confirmed by Salazar Staton ([id number]) on 08/01/2018 7:45:54 AM Referred By: Salazar Staton Confirmed By:Salazar Staton
--- NOTE | 2018-08-01 07:46 | CPEKG ---
Test Reason : OPEN Blood Pressure : / mmHG Vent. Rate : 067 BPM Atrial Rate : 067 BPM P-R Int : 131 ms QRS Dur : 108 ms QT Int : 438 ms P-R-T Axes : -03 085 014 degrees QTc Int : 463 ms Sinus rhythm Confirmed by Salazar Staton ([id number]) on 08/01/2018 7:45:53 AM Referred By: Salazar Staton Confirmed By:Salazar Staton
== END 2018-08-01 07:45 | disposition home or self-care (01) ==
DX: R10.9 Unspecified abdominal pain (principal); R07.9 Chest pain, unspecified; E86.9 Volume depletion, unspecified
CPT/HCPCS: 84484-ER; 96374; J2060

== ENCOUNTER 2018-08-07 01:46 | Emergency (ER) | payer OTHER | END 2018-08-07 03:31 | disposition home or self-care (01) | DX: R55 Syncope and collapse (principal) ==